=== PATIENT | male | born 1980 | race Caucasian/White ===

== ENCOUNTER → 2020-06-13 09:40 | Outpatient (BNVA) | payer OTHER, SELFPAY | PROVIDERS: Family Provider Family Medicine; PCP Family Medicine; Visit Provider Nurse Practitioner Family | DX: Z11.59 Encounter for screening for other viral diseases (principal) | CPT/HCPCS: 87635 ==

== ENCOUNTER 2021-08-24 08:15 | Emergency (ER) | payer SELFPAY ==
[2021-08-24 08:39] VITALS: BP 115/83; PULSE 86; RESP 19; TEMP 36.7; O2SAT 96; BMI 27.7
--- NOTE | 2021-08-24 08:49 | XR_ITS ---
WS: [id number] XR chest 1V portable [id number] REASON FOR EXAM: hemachezia FINDINGS: The chest is unchanged compared to previous examination of 02/18/2019. Mild tortuosity of the thoracic aorta. Normal heart size. Calcified granulomatous changes in both hemithoraces. No active pulmonary parenchymal or pleural disease. 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 XR/XR chest 1V portable [id number] IMPRESSION: No acute chest abnormality.
--- NOTE | 2021-08-24 08:49 | CT_ITS ---
WS: [id number] CT abdomen pelvis w con* [id number] REASON FOR EXAM: abdominal pain IV CONTRAST ADMINISTERED: 95 mL of Omnipaque 300 TOTAL EXAM DLP: 3282.[address] scans at [facility] use at least one of these dose optimization techniques: automat ed exposure control; mA and/or kV adjustment per patient size (includes targeted exams where dose is matched to clinical indication); or iterative reconstruction. FINDINGS: ABDOMEN: The liver, spleen, pancreas, and gallbladder are unremarkable. The adrenal glands are normal. [place] border effect in the renal medulla compatible with mild benign tubular ectasia. Otherwise the kidneys are unremarkable. No mass, adenopathy, or fluid collection. No free fluid. Normal appendix. There is a focal outpouching of the terminal ileum just proximal to its entry into the cecum that is thick-walled and contains at least 2 calculi. Measures approximately 2.5 x 2.5 cm. PELVIS: No mass, adenopathy, focal fluid collection, or free fluid. Diverticuli of the sigmoid colon without definite diverticulitis. The rectum and rectosigmoid junction demonstrate mural thickening with mildly increased enhancement o f the mucosa. CT/CT abdomen pelvis w con* [id number] IMPRESSION: Meckel's diverticulum containing calculi. This could be the source of GI bleedi ng. Inflammatory appearing changes in the rectum which could potentially also be a source of bleeding.
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
[2021-08-24 09:07] LABS: Add Urine Microscopic? NO; Charge for UA Resulting for Rev
[2021-08-24 09:08] LABS: Basophils # 0.1 10^3/uL (0.0-0.1); Basophils % 1.5 %; Eosinophils # 0.3 10^3/uL (0.0-0.8); Hematocrit 43.8 % (42.0-52.0); Hemoglobin 14.7 g/dL (11.7-16.6); Lymphocytes # 1.6 10^3/uL (0.8-4.8); Lymphocytes % 24.6 %; Mean Corpuscular HGB Conc 33.6 g/dL (30.0-36.0); Mean Corpuscular Hemoglobin 32.3 pg (28.0-34.0); Mean Corpuscular Volume 96.3 fl (80-94); Mean Platelet Volume 10.3 fL (7.4-10.4); Monocytes # 0.8 10^3/uL (0.2-0.9); Monocytes % 11.8 %; Neutrophils # 3.72 10^3/uL (1.8-7.7); Neutrophils % 56.8 %; Nucleated Red Blood Cells % 0 %; Platelet Count 193 10^3/cmm (130-400); Red Blood Count 4.55 10^6/uL (4.1-5.3); Red Cell Distribution Width 13.9 % (12.1-15.1); White Blood Count 6.6 10^3/uL (4.0-10.0)
[2021-08-24] MEDS: sodium chloride 0.9% 1,000 ML 999 ML IV (09:14)
[2021-08-24 09:19] LABS: Bilirubin Urine Neg (Negative); Blood Urine Neg (Negative); Glucose Urine UA Norm (Normal); Ketones Urine Negative (Negative); Leukocyte Esterase Urine Negative (Negative); Nitrate Urine Negative (Negative); Protein Urine Neg (Negative); Urine Appearance Clear (CLEAR); Urine Color Straw (Yellow); Urobilinogen Urine Norm (Negative); pH Urine 7 (5-7)
[2021-08-24 09:25] LABS: INR 0.88 (0.8-1.2)
[2021-08-24 09:26] LABS: Partial Thromboplastin Time 28.7 SECONDS (23.9-36.7)
[2021-08-24 09:33] LABS: Alanine Aminotransferase 16 U/L (0-41); Albumin Level 4.2 g/dL (3.5-5.2); Alkaline Phosphatase 40 IU/L (40-130); Anion Gap 15.9 (5-19); Aspartate Amino Transferase 29 U/L (0-40); Blood Urea Nitrogen 9 mg/dL (6-20); Calcium 8.5 mg/dL (8.5-10.5); Carbon Dioxide 26 mmol/L (22-29); Chloride 103 mmol/L (98-107); Globulin 2.9 g/dL (1.3-4.6); Glomerular Filtration Rate 125.5 mL/min (90-130); Glucose 86 mg/dL (65-115); Osmolality Calculated 290 mOsm/kg (285-295); Potassium 3.9 mmol/L (3.5-5.1); Sodium 141 mmol/L (136-145); Total Bilirubin 0.2 mg/dL (0.15-1.2); Total Protein 7.1 g/dL (6.6-8.7)
[2021-08-24] MEDS: CELEcoxib 100 mg Capsule 400 MG PO (10:22)
--- NOTE | 2021-08-28 15:16 | DCPLANNER ---
mobility manager had message to schedule a follow up appointment for patient with general surgery. mobility manager emailed patients information to Samanta Ramires and Angelica at [facility] General Surgery. Patients information will be printed and reviewed. Clinic will call patient with appointment information.
--- NOTE | 2021-09-21 10:37 | DCPLANNER ---
Patient had a follow up appointment scheduled for 09.04.21 with general surgery - patient did attend appointment.
== END 2021-08-24 10:29 | disposition home or self-care (01) ==
PROVIDERS: Emergency Provider Nurse Practitioner Family; PCP Family Medicine
DX: Q43.0 Meckel's diverticulum (displaced) (hypertrophic) (principal)
CPT/HCPCS: 71045; 74177; 80053; 81003; 85025; 85610; 85730; 96360; 99283; J7030; Q9967

== ENCOUNTER → 2021-09-18 15:33 | Outpatient (BNVA) | payer OTHER, SELFPAY | PROVIDERS: PCP Family Medicine; Visit Provider Surgery | DX: Z20.822 Contact with and (suspected) exposure to COVID-19 (principal); Z11.52 Encounter for screening for COVID-19 | CPT/HCPCS: 87635 ==

== ENCOUNTER 2021-09-22 07:14 | Day surgery (SDC) | payer SELFPAY ==
[2021-09-18 14:36] VITALS: BMI 30.4
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
[2021-09-22 07:47] VITALS: BP 133/90; PULSE 63; RESP 18; TEMP 36.6; O2SAT 96
[2021-09-22] MEDS: sodium chloride 0.9% 1,000 ML 30 ML IV (07:50)
--- NOTE | 2021-09-22 08:44 | W.PM.OPSUD ---
Surgery/Procedure H&P Update DATE OF PROCEDURE: September 22, 2021 DATE H&P PERFORMED: 09/04/21 H&P UPDATE INFORMATION: I have reviewed H&P completed within last 30 days, I have examined patient prior to procedure and No changes to prior documentation PREOP DIAGNOSIS: Bleeding per rectum PRIMARY INDICATION FOR PROCEDURE: The same PLANNED PROCEDURE: Operation Date: 09/22/21 08:45 Proposed Procedures p EGD/Colon 35931 K92.1(Not Applicable) - Alejandro Salas MD s Colonoscopy 58166 K92.1(Not Applicable) - Alejandro Salas MD
[2021-09-22 09:59] VITALS: BP 124/80; PULSE 65; RESP 18; TEMP 36.1; O2SAT 100
--- NOTE | 2021-09-22 10:03 | ANE.PACU2 ---
Inpatient post-anesthesia follow up: Airway intact: Yes Vital signs: Temperature 97.9 F Pulse Rate 63 Respiratory Rate 18 Blood Pressure 133/90 Pulse Oximetry 96 Oxygen Delivery Me thod Room Air Oxygen Flow Rate Fraction of Inspir ed Oxygen Hydration adequate: Yes Nausea and vomiting: No Pain level: 1 Mental status: Baseline
[2021-09-22 10:17] VITALS: BP 117/87; PULSE 60; RESP 18; O2SAT 99
[2021-09-25 15:09] LABS: H. Pylori / CLO Test Negative
== END 2021-09-22 10:28 | disposition home or self-care (01) ==
PROVIDERS: PCP Family Medicine; Visit Provider Surgery
PROC: 0DJ08ZZ Inspection of Upper Intestinal Tract, Via Natural or Artificial Opening Endoscopic (ICD-10-PCS; CPT 43235; principal; 2021-09-22 08:45)
PROC: 0DJD8ZZ Inspection of Lower Intestinal Tract, Via Natural or Artificial Opening Endoscopic (ICD-10-PCS; CPT 45378; 2021-09-22 08:45)
DX: K92.1 Melena (principal); K29.70 Gastritis, unspecified, without bleeding; K29.80 Duodenitis without bleeding; K21.00 Gastro-esophageal reflux disease with esophagitis, without bleeding
CPT/HCPCS: 43239; 45378; 87077; 96360; 96361; J2704; J7030

== ENCOUNTER → 2021-10-13 14:23 | Outpatient (BNVA) | payer OTHER, SELFPAY | PROVIDERS: PCP Family Medicine; Visit Provider Surgery | DX: Z20.822 Contact with and (suspected) exposure to COVID-19 (principal); Z11.52 Encounter for screening for COVID-19 | CPT/HCPCS: 87635 ==

== ENCOUNTER 2021-10-17 05:57 | Day surgery (SDC) | payer SELFPAY ==
[2021-10-16 15:55] VITALS: BMI 30.3
[2021-10-17] VITALS (18 sets, daily range): BP systolic 129–161; BP diastolic 65–106; PULSE 54–82; RESP 12–19; TEMP 36.9; O2SAT 92–97
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
[2021-10-17] MEDS: acetaminophen 1,000 MG/100 ML PIGGYBACK 400 MG IV (06:47)
[2021-10-17] MEDS: heparin 5,000 unit/mL INJ 1 mL 3000 UNIT SUBCUT (06:47)
[2021-10-17] MEDS: sodium chloride 0.9% 1,000 ML 30 ML IV (06:53)
--- NOTE | 2021-10-17 06:58 | ANES.PREANE2 ---
Pre-Anesthetic Assessment Pre-Anesthetic Assessment: Height/Weight: Height 1.85 m Weight 104.326 kg Temp Pulse Resp BP Pulse Ox 98.4 F 63 18 134/94 97 10/17/21 06:23 10/17/21 06:23 10/17/21 06:23 10/17/21 06:23 10/17/21 06:23 Preop Diagnosis: Ileal diverticulum Proposed Procedure: Operation Date: 10/17/21 07:30 Proposed Procedures p Laparoscopic Right Hemicolectomy 66547 K62.5(Right) - Alejandro Salas MD Was Beta Corinne taken within 24 hours: N/A Was Clonidine taken within 24 hours: N/A Last intake: Intake Last Liquid Date 10/17/21 Last Liquid Time 00:00 Last Solid Date 10/16/21 Last Solid Time 08:00 Social: Social History: Alcohol and No tobacco Exam: Pre-Anes Outpt Exam: alert, oriented x 3, clear to auscultation bilaterally and regular rate & rhythm Airway: Submandibular: WNL Cervical ROM: WNL MP: 1 Dentition: Chipped History/ROS: No significant history except as noted Pulmonary: Pulmonary: None reported CV/HEM: CV/HEM: None reported : : None reported Hepatic: Hepatic: None reported GI: GI: GERD Comments: Bleeding per rectum, Meckels diverticulum Metabolic: Metabolic: None reported Musc/skel: Musc/skel: None reported Neuropsych: Neuropsych: None reported Anesthetic Plan: ASA status: 2 Anesthesia: Anesthesia Evaluation and General Risk of > 500 ml blood loss (7ml/kg in children): No Meds/Allergies Current Medications: Current Medications Generic Name Dose Route Start Last Admin Trade Name Freq PRN Reason Stop Dose Admin Sodium Chloride 1,000 mls @ 30 ml s/hr 10/17/21 06:30 10/17/21 06:53 Sodium Chloride 0.9% IV 10/18/21 06:29 30 mls/hr .Q24H BASIM Administration PFSH Anesthesia PFSH: Medical History Gastritis and duodenitis Family History Denies family history of Anesthesia complication Social History Alcohol intake: current Alcohol intake frequency: 3 or more drinks per day Alcohol type: beer Data Anesthesia Cardiac Studies: No Data to Display
[2021-10-17] MEDS: piperacillin-tazobactam 3.375 GM in sodium chloride 0.9% (plus) 50 ML IV (07:54)
--- NOTE | 2021-10-17 09:39 | PM.OP ---
Operative Report Date of procedure: October 17, 2021 Pre-op Diagnosis: Ileal diverticulum Post-op diagnosis: same Post-op Diagnosis: Incidental finding of jejunal intussusception without complication or secondary underlying cause that was milked out without complication Post-op Findings: Normal intra-abdominal findings except for omental adhesions towards the falciform ligament Procedure Done: 1-Diagnostic laparoscopy 2-Laparoscopic incidental appendectomy Implants: Pieces of Surgicel Specimens removed/disposition: Appendix Surgeon: Alejandro Salas Director Pharmacy Services: Surgical Cinthya Arora Circulating nurse Ninfa Anesthesia: 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 Patient was appropriately secured to the table. Timeout was done verifying the patient's name/date of /planned procedure and destination after the procedure, all were in agreement., preoperative antibiotics administered per protocol. prep and drape of the abdomen was done under the usual sterile technique. Started by longitudinal skin incision supraumbilical using a Campbell trocar technique safe entry to the abdominal cavity was achieved verified by using 10 mm zero degree laparoscopy, switched to a 30? scope under direct visualization a suprapubic 5 mm trocar was inserted followed by another 5 mm trocar inserted in the left upper quadrant. Extensive adhesions noted towards the cephalad part of the abdomen that was taken down under direct visualization using energy device Enseal. At that point attention was deviated towards the terminal ileum were no diverticula were appreciated and the whole bowel were checked from the ileocecal junction to the ligament of Treitz. Only incidental small intussusception was found towards the proximal part of the jejunum that was milked out without difficulty and there were no other underlying masses or lymph nodes no evidence of bowel ischemia. At that point I did discuss the case over the phone with Dr. Davey radiologist as there were findings of ileal diverticulum in the past on the CT scan. As I could not see any abnormalities detected of the bowel. I decided at that point to perform incidental appendectomy, a window was created and a blue load GI stapler was fired towards the healthy base of the appendix and Endoloop PDS was placed under direct visualization to control the mesoappendix. Appendectomy was achieved and was retrieved in Endo Catch bag for permanent pathology. Final look laparoscopy was done showing no other abnormalities or injuries, was some oozing at all of the small bowel serosa and is piece of Surgicel was applied also another piece of Surgicel was applied towards the omental adhesiolysis all trocars were taken out under direct visualization after the supraumblical trocar site was closed by #1 PDS sutures under direct vision using fascial closure device ,followed by skin closure using 4-0 Monocryl of all trocar site incisions. Surgical glue was applied Bilateral TAP (transversus abdominous plain peripheral nerve block) block using Exparel 20 mL Exparel,40 ml Normal saline,20 ml bupivacaine 0.25% 30 mL on each side injected, 20 mL injected the port sites. Count was completed at the end of the procedure for [place] , sponges and instruments, Zurita catheter was taken out at the end of the procedure Patient tolerated the procedure well and was transferred to the recovery area after extubation. I was present for the whole entire procedure
[2021-10-17] MEDS: fentaNYL 50 mcg/mL INJ 2mL IVP (09:56)
[2021-10-17] MEDS: HYDROmorphone 1 mg/mL INJ 1 mL 0.5 MG IVP (10:20)
--- NOTE | 2021-10-17 10:30 | SUR.PHASEI ---
PT AWAKE ALERT TALKATIVE UNABLE TO USE URINAL AT THIS TIME PT TAKING ICE CHIPS PT ON 3LNC SATS 96% AND NON LABORED MONITOR SR, ABD SOFT FLAT WITH 3 SITES D/I
--- NOTE | 2021-10-17 10:37 | SUR.PHASEI ---
PT NOW OUT OF PHASE 1 PT IN HOLDING OPS ROOM 12 PT AWAKE ALERT VSS CALL LIGHT WITHIN REACH.
--- NOTE | 2021-10-17 11:14 | SUR.PHASEI ---
PT SLEEPS QUIETLY IN ROOM SIPS OF SPRITE, BED LOCKED AND CALL LIGHT WITHIN REACH, PT CARE ASSUMED BY YAQUELIN PHILLIPS. PT HAS HIS BELONGING AND CELL PHONE.
--- NOTE | 2021-10-17 11:23 | SUR.PHASEI ---
patient has sprite, water, ice chips at bedside. patient states he is comfortable.
--- NOTE | 2021-10-17 14:11 | PM.SDS ---
Short Stay Summary Providers Date of Admit/Discharge: 10/19/21 Attending Provider: Alejandro Marshall MD Primary Care Provider: Beata Stallings DO Chief Complaint: Bleeding per rectum HPI History of Present Illness Lucio James is a 41 year old male with history of bleeding per rectum and was found to have ileal diverticulum, patient was worked up and the decision was done to perform a laparoscopic right hemicolectomy versus laparoscopic ileocecectomy. Patient agreed to proceed accordingly. Review of Systems General: Reports: 10 or more systems reviewed and unremarkable except in HPI and below Home Meds/Allergies Home Medications and Allergies Home Medications Medication Instructions Recorded Confirmed Type multivitamin 1 tab PO DAILY 09/18/21 10/17/21 History Allergies Allergy/AdvReac Type Severity Reaction Status Date / Time No Known Allergies Allergy Verified 10/16/21 15:54 PFSH Acute PFSH: Medical History Gastritis and duodenitis Family History Denies family history of Anesthesia complication Social History Alcohol intake: current Alcohol intake frequency: 3 or more drinks per day Alcohol type: beer Vitals/I&O/Wt Last Vital Signs Temp 98.4 F 10/17/21 10:35 Pulse 74 10/17/21 11:20 Resp 19 H 10/17/21 11:20 BP 135/91 10/17/21 11:20 Pulse Ox 93 10/17/21 11:20 10/16/21 10/17/21 10/17/21 22:59 06:59 14:59 Intake Total 100 / 100 150 / 150 Output Total 305 / 305 Balance 100 / 100 -155 / -155 Weight last 48 hrs Weight 230 lb Physical Exam Narrative: EXAM NARRATIVE: Patient is conscious alert oriented X3 BMI 30 Head and neck examination PERRLA no masses no cervical lymphadenopathy no jaundice Abdomen nontender except mildly at the incision sites nondistended soft no organomegaly guarding or rigidity/no signs of peritonitis Urinary Catheter Management^: Zurita: Cath Placed During This Visit: yes, but has since been removed by the nurse Urinary Catheter Date of Insertion: 10/17/21 Urinary Catheter Time of Insertion: 08:10 Date Urinary Catheter Removed: 10/17/21 Time Urinary Catheter Discontinued: 09:48 Hospital Course Hospital Course Patient did well postoperatively and continued to have stable vital signs and good urine output. Tolerated p.o. intake and continued to pass gas. Discharge Summary Patient met the appropriate criteria for safe discharge home with the plan to follow-up with me in the office in 1 week SSS Data Data Completed and Pending: Pending at discharge Category Date Time Status Pathology: Surgic al [PTH] Routine Pth 10/17/21 09:41 Ordered Diagnoses at Discharge Discharge Diagnosis (1) Bleeding per rectum: Status: Resolved Discharge Plan Discharge Patient Disposition: Home Condition: Stable Prescriptions: New hydrocodone-acetaminophen 5-325 mg tablet 1 tab PO Q6H PRN (Reason: pain) Qty: 28 RF: 0 Continued multivitamin Tablet 1 tab PO DAILY RF: 0 pantoprazole [Protonix] 40 mg tablet,delayed release (DR/EC) 40 mg PO DAILY 30 Days Qty: 30 RF: 3 Discontinued erythromycin 500 mg tablet 500 mg PO ONCE Qty: 3 RF: 0 neomycin 500 mg tablet 1 g PO ONCE Qty: 6 RF: 0 Discharge Orders: Discharge Order (Routine); Ordered 10/17/21 Ordered By: Alejandro Marshall Referrals: Alejandro Marshall MD [Physician] - (FOLLOW UP WITH DOCTOR MARSHALL ON OCTOBER 26 AT 8:35am.) Discharge Diet: Advance as tolerated Discharge Activity: Limit activity as instructed Activity Restrictions/Additional Instructions: 1. Patient can shower after 48 hours from surgery 2. Remove Dermabond 7 to 10 days after surgery, if there is a secondary dressing can take down after 48 hours. 3. Up and walking as tolerated 4. Do not lift more than 5 pounds first 2 weeks after surgery and not more than 25 pounds 6 to 8 weeks after surgery. 5. Do not operate heavy machinery or drive while using pain medications. 6.Contact the office or return to the ER for worsening nausea vomiting fevers or chills, or noticing any redness around incision sites or discharge. 7. Avoid constipation Attestations Medical Necessity Statement*: Observation for perioperative care Time Spent in Patient Care*: less than 30 min Specific Discharge Activities: Specific discharge activities: educating patient Status at Discharge: Cognitive status at discharge: cognitively intact, Behavioral status at discharge: cooperative, Overall status at discharge: patient is progressing back to baseline Quality Metrics Clinical Quality Measures: During this hospital stay, did patient experience: None Coding Level of Care Code Acute Certified Family Mediator for Chg Fwd Diagnoses Bleeding per rectum K62.5
--- NOTE | 2021-10-17 14:18 | ANE.PACU2 ---
Inpatient post-anesthesia follow up: Vital signs: Temperature 98.4 F Pulse Rate 74 Respiratory Rate 19 Blood Pressure 135/91 Pulse Oximetry 93 Oxygen Delivery Me thod Nasal Cannula Oxygen Flow Rate 3 Fraction of Inspir ed Oxygen Hydration adequate: Yes Nausea and vomiting: No Pain level: 3 Mental status: Baseline
[2021-10-17] MEDS: HYDROcodone-acetaminophen 5-325 mg Tablet 1 TAB PO (14:38)
--- NOTE | 2021-10-17 14:52 | SUR.PHASEII ---
14:15 PATIENT RE-EVALUATED BY DOCTOR ROLANDO. PO PAIN MED GIVEN.
== END 2021-10-17 14:45 | disposition home or self-care (01) ==
PROVIDERS: PCP Family Medicine; Visit Provider Surgery
PROC: 0DTJ4ZZ Resection of Appendix, Percutaneous Endoscopic Approach (ICD-10-PCS; CPT 44970; principal; 2021-10-17 07:30)
DX: K62.5 Hemorrhage of anus and rectum (principal); K57.10 Diverticulosis of small intestine without perforation or abscess without bleeding; K20.90 Esophagitis, unspecified without bleeding; K56.1 Intussusception; R59.9 Enlarged lymph nodes, unspecified; K66.0 Peritoneal adhesions (postprocedural) (postinfection)
CPT/HCPCS: 44970; 51702; 88304; 96365; 96372; C9290; J1100; J1170; J1644; J2405; J2543; J2704; J2710; J3010; J3490; J7030

== ENCOUNTER 2021-10-24 13:58 | Observation (INO) | payer SELFPAY ==
[2021-10-24] VITALS (7 sets, daily range): BP systolic 125–139; BP diastolic 89–97; PULSE 69–84; RESP 17–19; TEMP 36.4; O2SAT 96–98; BMI 30.3; BMI 26.6
--- NOTE | 2021-10-24 15:20 | CTR_ITS ---
PROCEDURE INFORMATION: Exam: CT Abdomen And Pelvis With Contrast Exam date and time: 10/24/2021 3:20 PM Age: 41 years old Clinical indication: Abdominal pain; Prior surgery; Surgery date: <1 month; Additional info: Post surgical pain, diagnostic laparoscopy, incidental jejunal intussusception, TECHNIQUE: Imaging protocol: Computed tomography of the abdomen and pelvis with contrast. Axial, coronal and sagittal reformatted images were created and reviewed. Radiation optimization: All CT scans at this facility use at least one of these dose optimization techniques: automated exposure control; mA and/or kV adjustment per patient size (includes targeted exams where dose is matched to clinical indication); or iterative reconstruction. Contrast material: OMNI 300; Contrast volume: 95 ml; Contrast route: INTRAVENOUS (IV); COMPARISON: CT abdomen pelvis w con* [id number] 08/24/2021 9:04 AM RADIATION DOSE METRICS: Total DLP (mGy-cm): 1787.21 FINDINGS: Lungs: Minimal bibasilar atelectatic change. Liver: Unremarkable. Gallbladder and bile ducts: No radiodense gallstones. No biliary ductal dilatation. Pancreas: Unremarkable. Spleen: Unremarkable. Adrenal glands: Normal. No mass. Kidneys and ureters: No mass. No radiodense calculi. No hydronephrosis. Stomach and bowel: Postoperative changes in the right lower quadrant. No definite bowel wall thickening. No obstruction. No pneumatosis. Appendix: Normal. Intraperitoneal space: Small hemoperitoneum, predominantly in the right lower quadrant and pelvis. No convincing active extravasation of contrast. No definite organized collection. No free air. Vasculature: Unremarkable. No aneurysm. Lymph nodes: No pathologically enlarged lymph nodes. Urinary bladder: Unremarkable as visualized. Reproductive: Unremarkable. Bones/joints: No acute osseous abnormality. Osteopenia. Mild degenerative changes. Evidence of prior left sacroiliac joint fusion. Fixation hardware in the pubic symphysis and left proximal femur. Soft tissues: Unremarkable. CT/CT abdomen pelvis w con* [id number] IMPRESSION: 1. Small hemoperitoneum, predominantly in the right lower quadrant and pelvis, possibly related to continued bleeding at the operative site. Other sources of bleeding cannot be excluded. No definite active extravasation of contrast. Continued clinical and imaging surveillance is recommended. 2. Additional findings, as above.
[2021-10-24 18:04] LABS: Basophils # 0.1 10^3/uL (0.0-0.1); Basophils % 1.1 %; Eosinophils # 0.3 10^3/uL (0.0-0.8); Eosinophils % 2.6 %; Hematocrit 39.1 % (42.0-52.0); Hemoglobin 13.3 g/dL (11.7-16.6); Lymphocytes # 1.8 10^3/uL (0.8-4.8); Lymphocytes % 17.6 %; Mean Corpuscular Hemoglobin 33.4 pg (28.0-34.0); Mean Corpuscular Volume 98.2 fl (80-94); Mean Platelet Volume 9.5 fL (7.4-10.4); Monocytes # 1.1 10^3/uL (0.2-0.9); Monocytes % 10.7 %; Neutrophils # 6.79 10^3/uL (1.8-7.7); Neutrophils % 66.5 %; Nucleated Red Blood Cells % 0 %; Platelet Count 309 10^3/cmm (130-400); Red Blood Count 3.98 10^6/uL (4.1-5.3); Red Cell Distribution Width 13.5 % (12.1-15.1); White Blood Count 10.2 10^3/uL (4.0-10.0)
[2021-10-24 18:21] LABS: Alanine Aminotransferase 12 U/L (0-41); Albumin Level 4.4 g/dL (3.5-5.2); Alkaline Phosphatase 46 IU/L (40-130); Anion Gap 17.5 (5-19); Aspartate Amino Transferase 24 U/L (0-40); Blood Urea Nitrogen 12 mg/dL (6-20); Calcium 9.1 mg/dL (8.5-10.5); Carbon Dioxide 23 mmol/L (22-29); Chloride 103 mmol/L (98-107); Globulin 3.1 g/dL (1.3-4.6); Glomerular Filtration Rate 125.5 mL/min (90-130); Glucose 95 mg/dL (65-115); Lipase 72 U/L (13-60); Osmolality Calculated 288 mOsm/kg (285-295); Potassium 4.5 mmol/L (3.5-5.1); Sodium 139 mmol/L (136-145); Total Bilirubin 0.8 mg/dL (0.15-1.2); Total Protein 7.5 g/dL (6.6-8.7)
[2021-10-24] MEDS: iohexol 300 mg/mL 100 mL Btl IV (19:59)
[2021-10-24] MEDS: morphine 4 mg/mL SDV 1 mL IVP ×2 (20:12→23:19)
[2021-10-24 20:15] LABS: Add Urine Microscopic? NO; Charge for UA Resulting for Rev
[2021-10-24] MEDS: ondansetron 2 mg/ML SDV 2 mL 4 MG IVP (20:16)
--- NOTE | 2021-10-24 20:16 | W.ED.ABDPA2 ---
HPI - Abdominal Pain General: Chief Complaint: Abdominal Pain Stated Complaint: ABD PAIN/POST SURGERY RELATED Time Seen by Provider: 10/24/21 19:48 Source: patient Mode of arrival: ambulatory Limitations: no limitations History of Present Illness: HPI narrative: 41-year-old male who had an appendectomy 1 week ago states that he started having pain again last night that is diffuse in nature states this is gotten worse today states is worse with movement or palpation improved with rest states pain is currently an 8 out of 10 denies any fever denies any vomiting or diarrhea. He has not followed up with a surgeon since his appendectomy but states he did not have any issues till yesterday. Denies any constipation difficulty urinating Associated Symptoms: Denies chills, dysuria and fever(s) Review of Systems Const: Denies: fever(s), chills, body aches or change in appetite Eyes: Denies: blurry vision or eye discomfort ENMT: Denies: throat pain or dental pain Card: Denies: chest pain Resp: Denies: dyspnea GI: Reports: abdominal pain : Denies: dysuria Musc: Denies: neck pain or back pain Skin/Breast: Denies: rash Neuro: Denies: headache(s) Psych: Denies: depression Reymundo/Lymph: Denies: easy bruising All/Imm: Denies: urticaria PFSH ED PFSH: Medical History Gastritis and duodenitis Family History Denies family history of Anesthesia complication Social History Alcohol intake: current Alcohol intake frequency: 3 or more drinks per day Alcohol type: beer Physical Exam Const: COMMON NORMALS: no acute distress, patient oriented x3 and healthy appearing HENMT: COMMON NORMALS: normocephalic and atraumatic HEAD & SCALP: normocephalic and atraumatic Eye: COMMON NORMALS: Equal, round and reactive pupils present and EOMs intact bilaterally PUPIL: Yes Equal, round and reactive pupils present Neck/C-Spine: COMMON NORMALS: full ROM and supple Chest: COMMONS NORMALS: normal inspection of the chest and normal palpation of entire chest wall Resp: COMMON NORMALS: normal respiratory effort, No retractions, No use of accessory muscles and clear to auscultation bilaterally AUSCULTATION: clear to auscultation bilaterally Cardio: COMMON NORMALS: regular rate, regular rhythm and No murmurs present (Cardio) RATE: regular rate RHYTHM: regular rhythm GI: COMMON NORMALS: Normal to inspection, nondistended, normoactive bowel sounds present, Soft to palpation and no masses PALPATION: Yes Soft to palpation OTHER: diffuse tenderness Extremity: COMMON NORMALS: normal to inspection and full ROM Neuro: COMMON NORMALS: patient oriented x3, moves all extremities and no focal motor deficits Psych: COMMON NORMALS: mental status grossly normal, Normal thought process present and cooperative THOUGHT PROCESS: Normal thought process present Skin: COMMON NORMALS: no rashes or lesions noted and no wounds GENERAL SKIN EXAM: no rashes or lesions noted Course Vital Signs: Vital signs: Vital Signs Temperature 97.6 F 10/24/21 14:31 Pulse Rate 69 10/24/21 20:38 Respiratory Rate 17 10/24/21 20:38 Blood Pressure 137/92 10/24/21 20:38 Pulse Oximetry 97 10/24/21 20:38 MDM - Abdominal Pain MDM Narrative: Medical decision making narrative: Patient presents with diffuse abdominal pain CT did show a small hemoperitoneum but no active bleeding patient's hemoglobin here is stable vitals are stable as well. I did speak to his surgeon Dr. Swift will admit for observation to trend his hemoglobin and for reevaluation and reexamination in the morning. Lab Data: Labs: Lab Results 10/24/21 10/24/21 10/24/21 17:57 17:57 20:07 WBC 10.2 10^3/uL H 10 ^3/uL (4.0-10.0) RBC 3.98 10^6/uL L 10 ^6/uL (4.1-5.3) Hgb 13.3 g/dL g/dL (11.7-16.6) Hct 39.1 % L % (42.0-52.0) MCV 98.2 fl H fl (80-94) MCH 33.4 pg pg (28.0-34.0) MCHC 34.0 g/dL g/dL (30.0-36.0) RDW 13.5 % % (12.1-15.1) Plt Count 309 10^3/cmm 10^3 /cmm (130-400) MPV 9.5 fL fL (7.4-10.4) Neut % (Auto) 66.5 % % Lymph % (Auto) 17.6 % % [place]atte % (Auto) 10.7 % % Eos % (Auto) 2.6 % % Baso % (Auto) 1.1 % % Neut # (Auto) 6.79 10^3/uL 10^3 /uL (1.8-7.7) Lymph # (Auto) 1.8 10^3/uL 10^3/ uL (0.8-4.8) Platte # (Auto) 1.1 10^3/uL H 10^ 3/uL (0.2-0.9) Eos # (Auto) 0.3 10^3/uL 10^3/ uL (0.0-0.8) Baso # (Auto) 0.1 10^3/uL 10^3/ uL (0.0-0.1) Nucleated RBC % (a uto) 0 % % Nucleated RBCs # 0.0 /100WBC /100W BC Sodium 139 mmol/L mmol/L (136-145) Potassium 4.5 mmol/L mmol/L (3.5-5.1) Chloride 103 mmol/L mmol/L (98-107) Carbon Dioxide 23 mmol/L mmol/L (22-29) Anion Gap 17.5 (5-19) BUN 12 mg/dL mg/dL (6-20) Creatinine 0.7 mg/dL mg/dL (0.7-1.2) GFR Calculation 125.5 mL/min mL/m in (90-130) Glucose 95 mg/dL mg/dL (65-115) Calculated Osmolal ity 288 mOsm/kg mOsm/ kg (285-295) Calcium 9.1 mg/dL mg/dL (8.5-10.5) Total Bilirubin 0.8 mg/dL mg/dL (0.15-1.2) AST 24 U/L U/L (0-40) ALT 12 U/L U/L (0-41) Alkaline Phosphata se 46 IU/L IU/L (40-130) Total Protein 7.5 g/dL g/dL (6.6-8.7) Albumin 4.4 g/dL g/dL (3.5-5.2) Globulin 3.1 g/dL g/dL (1.3-4.6) Lipase 72 U/L H U/L (13-60) Urine Color Dark yellow (Yellow) Urine Appearance Clear (CLEAR) Urine pH 5 (5-7) Ur Specific Gravit y 1.025 (1.005-1.030) Urine Protein Neg (Negative) Urine Glucose (UA) Norm (Normal) Urine Ketones Negative (Negative) Urine Blood Neg (Negative) Urine Nitrate Negative (Negative) Urine Bilirubin Neg (Negative) Urine Urobilinogen Neg mg/dL mg/dL (Negative) Ur Leukocyte Mildred ase Negative (Negative) Imaging Data ^: CT Abd/Pel: Attestation: I personally reviewed and interpreted this imaging study as follows: Radiologist's impression: [facility] [address] [address] Scan Report Signed Patient: Lucio James Unit #: [id number] : 1980 Age/Sex: 41 / M ADM Date: 10/24/21 Loc: ER Room/Bed: Attending Dr: Ordering Provider/Ordering MD: Sary Miles Date of Service: 10/24/21 Procedure(s): CT abdomen pelvis w con* [id number] Accession Number(s): [id number] Report Number: [id number] PROCEDURE INFORMATION: Exam: CT Abdomen And Pelvis With Contrast Exam date and time: 10/24/2021 3:20 PM Age: 41 years old Clinical indication: Abdominal pain; Prior surgery; Surgery date: <1 month; Additional info: Post surgical pain, diagnostic laparoscopy, incidental jejunal intussusception, TECHNIQUE: Imaging protocol: Computed tomography of the abdomen and pelvis with contrast. Axial, coronal and sagittal reformatted images were created and reviewed. Radiation optimization: All CT scans at this facility use at least one of these dose optimization techniques: automated exposure control; mA and/or kV adjustment per patient size (includes targeted exams where dose is matched to clinical indication); or iterative reconstruction. Contrast material: OMNI 300; Contrast volume: 95 ml; Contrast route: INTRAVENOUS (IV); COMPARISON: CT abdomen pelvis w con* [id number] 08/24/2021 9:04 AM RADIATION DOSE METRICS: Total DLP (mGy-cm): 1787.21 FINDINGS: Lungs: Minimal bibasilar atelectatic change. Liver: Unremarkable. Gallbladder and bile ducts: No radiodense gallstones. No biliary ductal dilatation. Pancreas: Unremarkable. Spleen: Unremarkable. Adrenal glands: Normal. No mass. Kidneys and ureters: No mass. No radiodense calculi. No hydronephrosis. Stomach and bowel: Postoperative changes in the right lower quadrant. No definite bowel wall thickening. No obstruction. No pneumatosis. Appendix: Normal. Intraperitoneal space: Small hemoperitoneum, predominantly in the right lower quadrant and pelvis. No convincing active extravasation of contrast. No definite organized collection. No free air. Vasculature: Unremarkable. No aneurysm. Lymph nodes: No pathologically enlarged lymph nodes. Urinary bladder: Unremarkable as visualized. Reproductive: Unremarkable. Bones/joints: No acute osseous abnormality. Osteopenia. Mild degenerative changes. Evidence of prior left sacroiliac joint fusion. Fixation hardware in the pubic symphysis and left proximal femur. Soft tissues: Unremarkable. CT/CT abdomen pelvis w con* [id number] IMPRESSION: 1. Small hemoperitoneum, predominantly in the right lower quadrant and pelvis, possibly related to continued bleeding at the operative site. Other sources of bleeding cannot be excluded. No definite active extravasation of contrast. Continued clinical and imaging surveillance is recommended. 2. Additional findings, as above. Dictated By: Eber Greenwood MD Signed By: Eber Greenwood MD Signed Date/Time: 10/24/212107 Discharge Plan Discharge Patient Disposition: Placed in Observation Clinical Impression: Hemoperitoneum Abdominal pain Qualifiers: Abdominal location: generalized Qualified Code(s): R10.84 - Generalized abdominal pain Coding Level of Care Code ED Screener And Blender Operator for g Fwd Exam Comprehensive
[2021-10-24 20:27] LABS: Bilirubin Urine Neg (Negative); Blood Urine Neg (Negative); Glucose Urine UA Norm (Normal); Ketones Urine Negative (Negative); Leukocyte Esterase Urine Negative (Negative); Nitrate Urine Negative (Negative); Protein Urine Neg (Negative); Specific Gravity, Urine 1.025 (1.005-1.030); Urine Appearance Clear (CLEAR); Urine Color Dark Yellow (Yellow); Urobilinogen Urine Neg (Negative); pH Urine 5 (5-7)
[2021-10-24] MEDS: HYDROmorphone 1 mg/mL INJ 1 mL IVP (21:45)
[2021-10-24 22:01] LABS: Lactate (Lactic Acid level) 0.6 mmol/L (0.5-2.2)
[2021-10-24] MEDS: sodium chloride 0.9% 1,000 ML 100 ML IV (23:18)
--- NOTE | 2021-10-24 23:30 | PC.NURSE ---
ADMIT NOTE Pt received to floor from ER at 2308 via wheelchair. Is alert and oriented. c/o lower abdominal pain isadora to the RLQ. Says pain increases with movement. Had lap appey a week ago and was doing well until pain started last evening and did not let up. Denies any activity precipitating the pain. I've been trying to take it easy Also denies any nausea. IV fluids of NS started at 100ml/hr rate. Was given Morphine on arrival to floor. Says moving with transfer started pain up again. Aware of NPO status and says will probably go to the OR in the morning.
[2021-10-25] VITALS (16 sets, daily range): BP systolic 102–122; BP diastolic 62–85; PULSE 56–68; RESP 16–18; TEMP 36.6–37.1; O2SAT 92–97
[2021-10-25] MEDS: morphine 4 mg/mL SDV 1 mL IVP ×10 (01:49→23:49)
--- NOTE | 2021-10-25 05:42 | PC.NURSE ---
SHIFT SUMMARY Has not slept since admission but says is not unusual for him. Continues to have c/o abdominal pain isadora in RLQ. Is quite tender and says moving around increases the pain. Abd without distention. Call was made to Dr Salas regarding pain and pain med. Morphine freq was increased to q2h prn and has taken it when time. IV fluids infusing at 100ml/hr rate. Dr Salas in this am to see and evaluate pt
--- NOTE | 2021-10-25 05:48 | PM.HP ---
Providers/Chief Complaint Admitting Physician: Alejandro Salas MD Primary Care Provider: Beata Stallings DO Chief Complaint: ABD PAIN/POST SURGERY RELATED History of Present Illness Lucio James is a 41 year old male well-known to me has recently undergone uneventful diagnostic laparoscopy and incidental appendectomy on October 17, 2021. Over the past couple of days patient started to encounter sharp right lower quadrant abdominal pain referred to the private area, patient denies any nausea vomiting fevers or chills or change in bowel habits. He continues to tolerate p.o. intake and passing gas and having bowel movements. Patient denies any NSAID intake or any trauma to the area or heavy lifting or strenuous exercises. Patient symptoms got worse he got very anxious and worried so he came to the emergency department and further work-up was done in the form of blood work that showed WBC count of 10.2, hemoglobin of 13.3 and hematocrit of 39.1, platelets of 309. Otherwise CMP unremarkable except for slight elevation of serum lipase up to 72. CT scan of the abdomen and pelvis: 1. Small hemoperitoneum, predominantly in the right lower quadrant and pelvis, possibly related to continued bleeding at the operative site. Other sources of bleeding cannot be excluded. No definite active extravasation of contrast. Continued clinical and imaging surveillance is recommended. 2. Additional findings, as above. I elected to admit the patient for observation status to monitor his vital signs which continue to be stable as well as to obtain repeat blood work. Review of Systems General: Reports: 10 or more systems reviewed and unremarkable except in HPI and below Medications/Allergies Home Medications Medication Instructions Recorded Confirmed Last Taken Type multivitamin 1 tab PO DAILY 09/18/21 10/25/21 1 Day Ago History ~10/16/21 pantoprazole [Protonix] 40 mg PO DAILY 30 Days #30 tab 09/22/21 10/25/21 1 Day Ago Rx ~10/16/21 Allergies Allergy/AdvReac Type Severity Reaction Status Date / Time No Known Allergies Allergy Verified 10/25/21 06:04 PFSH Acute PFSH: Medical History Gastritis and duodenitis Family History Denies family history of Anesthesia complication Social History Alcohol intake: current Alcohol intake frequency: 3 or more drinks per day Alcohol type: beer Vitals/I&O/Wt Last Vital Signs Temp 97.9 F 10/25/21 04:38 Pulse 66 10/25/21 04:38 Resp 18 10/25/21 04:38 BP 120/81 10/25/21 04:38 Pulse Ox 92 10/25/21 04:38 10/24/21 10/24/21 10/25/21 14:59 22:59 06:59 Intake Total 150 / 150 Output Total 400 / 400 Balance -250 / -250 Weight last 48 hrs Weight 202 lb 8 oz Weight 230 lb Physical Exam Const: COMMON NORMALS: no acute distress and patient oriented x3 GENERAL APPEARANCE: cooperative ORIENTATION/CONSCIOUSNESS: Yes awake, Yes oriented to person, Yes oriented to place and Yes oriented to time HENMT: COMMON NORMALS: normocephalic HEAD & SCALP: normocephalic Eye: COMMON NORMALS: Equal, round and reactive pupils present and no scleral icterus PUPIL: Yes Equal, round and reactive pupils present Lymph: LYMPHATIC: no lymphadenopathy noted Chest: COMMONS NORMALS: normal inspection of the chest Resp: COMMON NORMALS: normal respiratory effort and clear to auscultation bilaterally AUSCULTATION: clear to auscultation bilaterally Cardio: COMMON NORMALS: S1 normal heart sound present and S2 normal heart sound present; negative for No murmurs present (Cardio) HEART SOUNDS: S1 normal heart sound present and S2 normal heart sound present GI: COMMON NORMALS: Soft to palpation; negative for No hepatosplenomegaly present INSPECTION: Yes normal to inspection AUSCULTATION: Yes Other GI auscultation findings (Incisions are healing well) PALPATION: Yes Soft to palpation, No Firmness to palpation present (GI), Yes Tenderness to palpation present (GI) Details: RLQ (No evidence of bruises or ecchymosis), No Guarding due to palpation present (GI), No Rigid due to palpation and No No hepatosplenomegaly present PERCUSSION: Other GI image (male): 1. No scrotal swelling or edema or bruises Neuro: COMMON NORMALS: patient oriented x3 SENSORIUM/ORIENTATION: Yes oriented to person, Yes oriented to place and Yes oriented to time Psych: COMMON NORMALS: mental status grossly normal Skin: COMMON NORMALS: no rashes or lesions noted GENERAL SKIN EXAM: no rashes or lesions noted Data : 10/25/21 05:34 10/24/21 17:57 A&P Assessment and plan (1) Postoperative hematoma: After thorough history physical examination and reviewing the chart and images. I do not see active bleeding at the moment yet I will further review the images with our radiologist, meanwhile we will put the patient prophylactically on broad-spectrum antibiotics and ice packs to the area. Further review the CT scan images with he does not see any indication of active bleeding at the present time as he describes the pathology has been contained hematoma. No evidence of free air or signs of abscess formation. Repeat physical examination Repeat blood work in the a.m. including lipase Pain control We will keep n.p.o. for now Assurance and education also I did talk with patient's spouse over the phone on morning clinical encounter to assure her and explain for the plan of care All questions have been answered and all concerns have been addressed to patient's satisfaction. Status: Acute Attestations Medical Necessity Statement*: Observation status for monitoring of vital signs and H&H Time Spent in Patient Care: 16 - 35 minutes (>than 50% of time spent in counselling and/or direct pt care on unit). Coding Level of Care Code Acute Rfid Systems Architect for Cedric Fwd Exam Comprehensive Diagnoses Postoperative hematoma
[2021-10-25 06:09] LABS: Basophils # 0.1 10^3/uL (0.0-0.1); Basophils % 1.3 %; Eosinophils # 0.4 10^3/uL (0.0-0.8); Eosinophils % 4.7 %; Hematocrit 35.8 % (42.0-52.0); Hemoglobin 11.9 g/dL (11.7-16.6); Lymphocytes % 22.4 %; Mean Corpuscular HGB Conc 33.2 g/dL (30.0-36.0); Mean Corpuscular Hemoglobin 32.8 pg (28.0-34.0); Mean Corpuscular Volume 98.6 fl (80-94); Monocytes % 11.5 %; Neutrophils # 5.12 10^3/uL (1.8-7.7); Neutrophils % 58.9 %; Nucleated Red Blood Cells % 0 %; Platelet Count 279 10^3/cmm (130-400); Red Blood Count 3.63 10^6/uL (4.1-5.3); Red Cell Distribution Width 13.2 % (12.1-15.1); White Blood Count 8.7 10^3/uL (4.0-10.0)
[2021-10-25] MEDS: piperacillin-tazobactam 3.375 GM in sodium chloride 0.9% (plus) 50 ML IV ×3 (06:11→21:51)
[2021-10-25] MEDS: sodium chloride 0.9% 1,000 ML 100 ML IV ×2 (08:37→17:52)
--- NOTE | 2021-10-25 10:17 | PC.CHAP ---
Pastoral Care Encounter/Spiritual Assessment Type of Contact [] Declined auto parts professional visit [] Patient/Family/Request visit [] Outpatient visit [] Follow-up visit [] Physician referral [] Code/Alert [x] Routine visit [] Staff referral [] Actively dying [] Patient sleeping [] Family support [] [] Out of room [] Palliative care [] [] Receiving care in room [] Pre-surgical visit [] Trauma [] Long length of stay [] ICU visit [] Other: Relational/Emotional Strength [] Patient feels connected with others/family/visitors/staff [] Distress [] Loneliness/isolation [] Abandonment Spirituality of Patient [] Person of Nayla [] Attends Latter Day of their Nayla [] Believes in Prayer [] Reads Bible or Presybeterian materials [] There are Spiritual issues to be addressed Toll Settlement Clerk Interventions [] Prayer [] Active listening [] Non-anxious presence [] Spiritual/emotional support [] Crisis/trauma care [] Spiritual counseling [] Bereavement support [] Provided bereavement packet [] Provided Bible/devotional materials [] Provided toy/stuffed animal, coloring book to patient or family member [] Provided Communion [] Anointing/[place] [] Salvation [x] Completed spiritual assessment [] Other: Impact on Illness or Injury [] Angry [] Fearful [] Anxious [] Often cries [] Exhaustion [] Unable to work [] Unable to attend voodoo [] Unable to walk/stand [] Unable to read [] Unable to drive [] Unable to eat/drink [] Unable to sleep [] Unable to be with family [] Patient intubated [] Other: Summary feeling better but refused pray Time spent with patient 5 min
[2021-10-26 01:47] VITALS: RESP 16
[2021-10-26] MEDS: morphine 4 mg/mL SDV 1 mL IVP ×2 (01:47→04:40)
[2021-10-26 03:00] VITALS: BP 106/88; PULSE 72; RESP 18; TEMP 36.7; O2SAT 96
[2021-10-26] MEDS: sodium chloride 0.9% 1,000 ML 100 ML IV (04:14)
[2021-10-26 04:40] VITALS: RESP 16
[2021-10-26] MEDS: piperacillin-tazobactam 3.375 GM in sodium chloride 0.9% (plus) 50 ML IV (05:49)
[2021-10-26 05:54] LABS: Basophils # 0.1 10^3/uL (0.0-0.1); Eosinophils # 0.4 10^3/uL (0.0-0.8); Eosinophils % 5.4 %; Hematocrit 35.6 % (42.0-52.0); Hemoglobin 11.9 g/dL (11.7-16.6); Lymphocytes # 1.7 10^3/uL (0.8-4.8); Lymphocytes % 21.9 %; Mean Corpuscular HGB Conc 33.4 g/dL (30.0-36.0); Mean Corpuscular Hemoglobin 32.8 pg (28.0-34.0); Mean Corpuscular Volume 98.1 fl (80-94); Mean Platelet Volume 10.1 fL (7.4-10.4); Monocytes # 0.9 10^3/uL (0.2-0.9); Monocytes % 11.3 %; Neutrophils # 4.73 10^3/uL (1.8-7.7); Neutrophils % 59.8 %; Nucleated Red Blood Cells % 0 %; Platelet Count 298 10^3/cmm (130-400); Red Blood Count 3.63 10^6/uL (4.1-5.3); Red Cell Distribution Width 13.2 % (12.1-15.1); White Blood Count 7.9 10^3/uL (4.0-10.0)
--- NOTE | 2021-10-26 05:54 | PC.NURSE ---
SHIFT SUMMARY Has had a good night. Has been medicated for pain in RLQ abd pain with IV Morphine but says pain is not getting as intense as it was. Ambulated in [place] last evening and was moving much better. Abd soft with tenderness present across lower abd but isadora in RLQ. IV infusing without difficulty at 100ml/hr rate. Receiving IV antibiotics as ordered. NPO after midnight. Is hoping he can go home today
[2021-10-26 06:02] LABS: Anion Gap 17.2 (5-19); Blood Urea Nitrogen 11 mg/dL (6-20); Calcium 8.2 mg/dL (8.5-10.5); Carbon Dioxide 23 mmol/L (22-29); Chloride 103 mmol/L (98-107); Glomerular Filtration Rate 125.5 mL/min (90-130); Glucose 95 mg/dL (65-115); Lipase 58 U/L (13-60); Osmolality Calculated 287 mOsm/kg (285-295); Potassium 4.2 mmol/L (3.5-5.1); Sodium 139 mmol/L (136-145)
[2021-10-26 07:00] VITALS: BP 114/71; PULSE 54; RESP 16; TEMP 36.9; O2SAT 94
--- NOTE | 2021-10-26 08:07 | P.SS_ITS ---
Short Stay Summary Providers Date of Admit/Discharge: 10/27/21 Attending Provider: Alejandro Salas MD Primary Care Provider: Beata Stallings DO Chief Complaint: ABD PAIN/POST SURGERY RELATED HPI History of Present Illness Lucio James is a 41 year old male well-known to me has recently undergone uneventful diagnostic laparoscopy and incidental appendectomy on October 17, 2021. Over the past couple of days patient started to encounter sharp right lower quadrant abdominal pain referred to the private area, patient denies any nausea vomiting fevers or chills or change in bowel habits. He continues to tolerate p.o. intake and passing gas and having bowel movements. Patient denies any NSAID intake or any trauma to the area or heavy lifting or strenuous exercises. Patient symptoms got worse he got very anxious and worried so he came to the emergency department and further work-up was done in the form of blood work that showed WBC count of 10.2, hemoglobin of 13.3 and hematocrit of 39.1, platelets of 309. Otherwise CMP unremarkable except for slight elevation of serum lipase up to 72. CT scan of the abdomen and pelvis: 1. Small hemoperitoneum, predominantly in the right lower quadrant and pelvis, possibly related to continued bleeding at the operative site. Other sources of bleeding cannot be excluded. No definite active extravasation of contrast. Continued clinical and imaging surveillance is recommended. 2. Additional findings, as above. I elected to admit the patient for observation status to monitor his vital signs which continue to be stable as well as to obtain repeat blood work. Review of Systems General: Reports: 10 or more systems reviewed and unremarkable except in HPI and below Home Meds/Allergies Home Medications and Allergies Home Medications Medication Instructions Recorded Confirmed Type multivitamin 1 tab PO DAILY 09/18/21 10/25/21 History Allergies Allergy/AdvReac Type Severity Reaction Status Date / Time No Known Allergies Allergy Verified 10/25/21 06:04 PFSH Acute PFSH: Medical History Abdominal pain Bleeding per rectum Esophagitis Gastritis and duodenitis Hemoperitoneum Postoperative hematoma Family History Denies family history of Anesthesia complication Social History Alcohol intake: current Alcohol intake frequency: 3 or more drinks per day Alcohol type: beer Vitals/I&O/Wt Last Vital Signs Temp 98.5 F 10/26/21 07:00 Pulse 54 L 10/26/21 07:00 Resp 16 10/26/21 07:00 BP 114/71 10/26/21 07:00 Pulse Ox 94 10/26/21 07:00 10/25/21 10/26/21 10/26/21 22:59 06:59 14:59 Intake Total 1575 / 2916.667 1290 / 4206.667 Balance 1575 / 2916.667 1290 / 4206.667 Weight last 48 hrs Weight 202 lb 8 oz Weight 230 lb Physical Exam Narrative: EXAM NARRATIVE: Patient is conscious alert oriented X3 BMI 26.7 Head and neck examination PERRLA no masses no cervical lymphadenopathy no jaundice Cardiac examination audible S1-S2 no murmurs no gallops no arrhythmias Chest is clear bilateral,abscence of Rhonchi or wheezes,no surgical emphysema Abdomen much less tender nondistended soft no organomegaly guarding or rigidity/no signs of peritonitis Incisions are clean dry and intact Extremities no cyanosis no clubbing no edema Hospital Course Admission Diagnoses Patient got admitted for observation and labs were repeated continue to have stable H&H. Patient also continues to have stable vital signs with no evidence of hypotension or tachycardia. Maintained to have adequate urine output, tolerating p.o. intake and passing gas. Further evaluation of the CT scan of the abdomen and pelvis of admission showed stable hematoma without evidence of bleeding. Discharge Summary This is a pleasant 41-year-old gentleman status post diagnostic laparoscopy with incidental appendectomy. Developed hematoma at the surgical site of the appendectomy. Treated conservatively and the plan to discharge patient home on oral antibiotics and pain medications. With education about refraining from heavy lifting or strenuous exercises and have the patient follow-up with me at the office in a week or so SSS Data Data Completed and Pending: Completed Studies During Hospitalization Category Date Time Status CT abdomen pelvis w con* [id number] Urge nt Cat Scan 10/24/21 15:20 Completed Diagnoses at Discharge Discharge Diagnosis (1) Postoperative hematoma: Permanent problem details: Condition is stable Discharge Plan Discharge Patient Disposition: Home Condition: Stable Prescriptions: New hydrocodone-acetaminophen 5-325 mg tablet 1 tab PO Q6H PRN (Reason: pain) Qty: 28 RF: 0 Augmentin 875-125 mg tablet 1 tab PO Q12H Qty: 14 RF: 0 Continued multivitamin Tablet 1 tab PO DAILY RF: 0 pantoprazole [Protonix] 40 mg tablet,delayed release (DR/EC) 40 mg PO DAILY 30 Days Qty: 30 RF: 3 Discharge Orders: Discharge Order (Routine); Ordered 10/26/21 Ordered By: Alejandro Salas Referrals: Randolph Corona DO [Physician] - 11/02/21 10:00 am Alejandro Salas MD [Physician] - (RTC in 2 weeks) Tanner Dickson MD [Physician] - 11/17/21 8:50 am (RTC in one week) Discharge Diet: Advance as tolerated Discharge Activity: Limit activity as instructed Patient Instructions: Hydrocodone/Acetaminophen (By mouth), Amoxicillin/Clavulanate Potassium (By mouth), Opioid Safety Activity Restrictions/Additional Instructions: 1. Patient can shower after 48 hours from surgery 2. Avoid vigorous activity or exercise and avoid NSAIDs 3. Up and walking as tolerated 4. Do not lift more than 5 pounds first 2 weeks after surgery and not more than 25 pounds 6 to 8 weeks after surgery. 5. Do not operate heavy machinery or drive while using pain medications. 6.Contact the office or return to the ER for worsening nausea vomiting fevers or chills, or noticing any redness around incision sites or discharge. Attestations Medical Necessity Statement*: Observation for repeated physical examination and repeat blood work Time Spent in Patient Care*: greater than 30 min Specific Discharge Activities: Specific discharge activities: educating patient and educating and/or supporting family/caregiver Status at Discharge: Cognitive status at discharge: cognitively intact , Behavioral status at discharge: cooperative , Functional status at discharge: independent ambulation Overall status at discharge: patient is progressing back to baseline Quality Metrics Clinical Quality Measures: During this hospital stay, did patient experience: None Coding Level of Care Code Acute Dressing Machine Operator for Cedric Fischer Diagnoses Postoperative hematoma
[2021-10-26 11:00] VITALS: BP 115/74; PULSE 62; RESP 18; TEMP 36.7; O2SAT 100
--- NOTE | 2021-10-26 11:14 | PC.NURSE ---
patient verbalized understanding of discharge instructions, home medications, and follow up appointments. prescriptions will be delivered by [facility]. patient stated that his ride would be here around noon.
[2021-10-26 12:23] VITALS: BP 115/74; PULSE 62; RESP 18; TEMP 36.7; O2SAT 100
== END 2021-10-26 12:26 | disposition home or self-care (01) ==
LOC: ER 21:55 → MEDSURG 22:48
PROVIDERS: Physician Assistant; Admitting Provider Surgery; Emergency Provider Emergency Medicine; PCP Family Medicine; Visit Provider Surgery
DX: K91.870 Postprocedural hematoma of a digestive system organ or structure following a digestive system procedure (principal); K66.1 Hemoperitoneum
CPT/HCPCS: 36415; 74177; 80048; 80053; 81003; 83605; 83690; 85025; 96365; 96375; 96376; 99285; G0378; J1170; J2270; J2405; J2543; J7030; Q9967

== ENCOUNTER → 2022-05-03 16:20 | Outpatient (BNVA) | payer OTHER, SELFPAY | PROVIDERS: PCP Family Medicine; Visit Provider Nurse Practitioner Psychiatric/Mental Health | DX: F41.1 Generalized anxiety disorder (principal); Z03.89 Encounter for observation for other suspected diseases and conditions ruled out; F10.20 Alcohol dependence, uncomplicated | CPT/HCPCS: 80053 ==

== ENCOUNTER → 2022-06-24 19:35 | Outpatient (BNVA) | payer SELFPAY | PROVIDERS: PCP Family Medicine; Visit Provider Nurse Practitioner Family | DX: J06.9 Acute upper respiratory infection, unspecified (principal); Z20.822 Contact with and (suspected) exposure to COVID-19 | CPT/HCPCS: 87426 ==

== ENCOUNTER 2022-07-08 04:58 | Inpatient (IN) | payer SELFPAY ==
[2022-07-08] VITALS (12 sets, daily range): BP systolic 102–133; BP diastolic 67–85; PULSE 58–93; RESP 16–18; TEMP 36.5–36.7; O2SAT 92–97; BMI 25.9
--- NOTE | 2022-07-08 06:22 | ED_ITS ---
HPI - Anxiety General: Chief Complaint: Anxiety Stated Complaint: Anxiety Time Seen by Provider: 07/08/22 06:12 History of Present Illness: This patient is a 42 year old male presenting to the ED stating that he is going to go to the stress unit for a few days. He reports that he has been going through a hard time and has been drinking a lot of alcohol in order to calm his nerves. He denies SI, but his family notes that he has been making statements about wanting to give up. He denies this. He does state that he has been very angry and that the next person to cross his path is going to get fucked up . His roommate says that he has been saying that he wants to go out and beat up on people. The patient denies that he wants to harm any particular people. He has been in the stress unit before but denies that he has ever attempted to harm himself. Then he added that he is drinking himself to . He also has been treated recently for an upper respiratory infection and is using an inhaler. He is a smoker. He was recently on a course of prednisone for the URI but has finished it. Associated symptoms: Deny chest pain, chills, fever(s), headache(s), malaise, nausea or vomiting Review of Systems Const: Denies: fever(s), chills, fatigue or malaise Eyes: Denies: change in vision ENMT: Denies: odynophagia Card: Denies: chest pain or swelling of feet/ankles Resp: Reports: non-productive cough; Denies: dyspnea or productive cough GI: Denies: abdominal pain, nausea or vomiting : Denies: flank pain Musc: Denies: neck pain or back pain Skin/Breast: Denies: rash Neuro: Denies: headache(s), numbness in extremities or weakness in extremities Psych: Reports: anxiety, depression, mood swings, loss of interest, irritability and other (rage and anger) Reymundo/Lymph: Denies: easy bruising or easy bleeding [facility] ED PFSH: Medical History (Updated 07/08/22 @ 14:14 by Ana Rosa Abraham MD) Abdominal pain Alcohol dependence Bleeding per rectum Esophagitis Gastritis and duodenitis Hemoperitoneum Hx of fracture of hip left hip/femur Postoperative hematoma Condition is stable Psychiatric care Family History Denies family history of Anesthesia complication Social History Smoking and tobacco status: current every day smoker cigarettes Packs smoked per day: 0.5 Years cigarettes smoked: 15 Quit status (tobacco): not considering quitting Second hand smoke exposure: No Alcohol intake: current Alcohol intake frequency: 3 or more drinks per day Alcohol type: beer Physical Exam Const: COMMON NORMALS: no acute distress, patient oriented x3, no limitations and alert GENERAL APPEARANCE: cooperative, comfortable and odor of alcohol detected HENMT: HEAD & SCALP: normal to inspection FACE & SINUS: normal facial exam Eye: GENERAL EYE: appearance normal, both eyes and all related structures Neck/C-Spine: COMMON NORMALS: supple, no meningeal signs and no JVD Chest: COMMONS NORMALS: normal inspection of the chest Resp: COMMON NORMALS: normal respiratory effort, No use of accessory muscles and clear to auscultation bilaterally AUSCULTATION: clear to auscultation bilaterally Cardio: COMMON NORMALS: no JVD, regular rate, regular rhythm and No murmurs present (Cardio) RATE: regular rate RHYTHM: regular rhythm GI: COMMON NORMALS: Normal to inspection, nondistended, normoactive bowel sounds present, Soft to palpation and non-tender INSPECTION: Yes normal to inspection AUSCULTATION: Yes normoactive bowel sounds PALPATION: Yes Soft to palpation Back/Pelvis: COMMON NORMALS: thoracic and lumbar spine normal to inspection Extremity: COMMON NORMALS: normal to inspection Neuro: COMMON NORMALS: patient oriented x3, moves all extremities, no focal motor deficits and no sensory deficits noted SENSORIUM/ORIENTATION: Yes alert MENINGEAL SIGNS: Yes no meningeal signs Psych: COMMON NORMALS: mental status grossly normal (intoxicated), cooperative, denies homicidal ideation and denies suicidal ideation ACTIVITY/MOTOR BEHAVIOR: Yes restless SPEECH: Yes loud JUDGEMENT: Limited judgement present (Psych) Skin: COMMON NORMALS: no rashes or lesions noted and turgor normal GENERAL SKIN EXAM: no rashes or lesions noted and turgor normal Course ED course: Patient consistent that he thinks he needs to come in. He was cooperative in the ED but thinks that he will lose his temper and hurt someone. Dr. Hooper accepted him to the [facility] and he was given a banana bag in the ED. [facility] requested a repeat etoh level prior to his transfer to their care and that is pending. Vital Signs: Vital signs: Vital Signs Temperature 98.1 F 07/08/22 05:03 Pulse Rate 64 07/08/22 13:30 Respiratory Rate 16 07/08/22 13:10 Blood Pressure 102/73 07/08/22 13:30 Pulse Oximetry 92 07/08/22 13:30 Oxygen Delivery Me thod 07/08/22 13:30 MDM - Anxiety Medical Decision Making Patient with history of alcohol abuse and is intoxicated currently. He wants to come to the stress unit to get help with his depression, anger. He is not suicidal, but says that he cannot control his anger and wants to hurt people. Labs pending, then eval for psych. Currently no beds in the [facility] and very limited throughout the state. He has been treated for a URI - he is over 2 weeks into the symptoms and even if it were COVID he would no longer be contagious, and testing is not going to be useful. Lab Data : 07/08/22 06:45 07/08/22 06:45 Laboratory Results WBC 5.0 10^3/uL (4.0-10.0) 07/08/22 06:45 RBC 4.72 10^6/uL (4.1-5.3) 07/08/22 06:45 Hgb 15.1 g/dL (11.7-16.6) 07/08/22 06:45 Hct 44.2 % (42.0-52.0) 07/08/22 06:45 MCV 93.6 fl (80-94) 07/08/22 06:45 MCH 32.0 pg (28.0-34.0) 07/08/22 06:45 MCHC 34.2 g/dL (30.0-36.0) 07/08/22 06:45 RDW 13.2 % (12.1-15.1) 07/08/22 06:45 Plt Count 160 10^3/cmm (130-400) 07/08/22 06:45 MPV 10.2 fL (7.4-10.4) 07/08/22 06:45 Neut % (Auto) 35.0 % 07/08/22 06:45 Lymph % (Auto) 45.6 % 07/08/22 06:45 [place] % (Auto) 10.2 % 07/08/22 06:45 Eos % (Auto) 6.4 % 07/08/22 06:45 Baso % (Auto) 2.4 % 07/08/22 06:45 Neut # (Auto) 1.74 10^3/uL (1.8-7.7) L 07/08/22 06:45 Lymph # (Auto) 2.3 10^3/uL (0.8-4.8) 07/08/22 06:45 [place] # (Auto) 0.5 10^3/uL (0.2-0.9) 07/08/22 06:45 Eos # (Auto) 0.3 10^3/uL (0.0-0.8) 07/08/22 06:45 Baso # (Auto) 0.1 10^3/uL (0.0-0.1) 07/08/22 06:45 Nucleated RBC % (auto) 0 % 07/08/22 06:45 Nucleated RBCs # 0.0 /100WBC 07/08/22 06:45 Sodium 144 mmol/L (136-145) 07/08/22 06:45 Potassium 3.6 mmol/L (3.5-5.1) 07/08/22 06:45 Chloride 104 mmol/L (98-107) 07/08/22 06:45 Carbon Dioxide 28 mmol/L (22-29) 07/08/22 06:45 Anion Gap 15.6 (5-19) 07/08/22 06:45 BUN 7 mg/dL (6-20) 07/08/22 06:45 Creatinine 0.8 mg/dL (0.7-1.2) 07/08/22 06:45 GFR Calculation 107.1 mL/min (90-130) 07/08/22 06:45 Glucose 89 mg/dL (65-115) 07/08/22 06:45 Calculated Osmolality 295 mOsm/kg (285-295) 07/08/22 06:45 Calcium 8.3 mg/dL (8.5-10.5) L 07/08/22 06:45 Total Bilirubin 0.3 mg/dL (0.15-1.2) 07/08/22 06:45 AST 33 U/L (0-40) 07/08/22 06:45 ALT 16 U/L (0-41) 07/08/22 06:45 Alkaline Phosphatase 48 U/L (40-130) 07/08/22 06:45 Total Protein 6.7 g/dL (6.6-8.7) 07/08/22 06:45 Albumin 4.0 g/dL (3.5-5.2) 07/08/22 06:45 Globulin 2.7 g/dL (1.3-4.6) 07/08/22 06:45 Salicylates < 0.3 mg/dL (3-10) L 07/08/22 06:45 Urine Opiates Screen Negative ng/mL (Negative) 07/08/22 07:00 Acetaminophen < 5.0 ug/mL (10-30) L 07/08/22 06:45 Ur Barbiturates Screen Negative ng/mL (Negative) 07/08/22 07:00 Ur Phencyclidine Scrn Negative ng/mL (Negative) 07/08/22 07:00 Ur Amphetamines Screen Negative ng/mL (Negative) 07/08/22 07:00 U Benzodiazepines Scrn Negative ng/mL (Negative) 07/08/22 07:00 Urine Cocaine Screen Negative ng/mL (Negative) 07/08/22 07:00 U Marijuana (THC) Screen Negative ng/mL (Negative) 07/08/22 07:00 Ethyl Alcohol 336 mg/dL (0-10) H* 07/08/22 06:45 Discharge Plan Discharge Patient Disposition: Admitted As Inpatient Admit Provider: Arash Hooper Clinical Impression: Alcohol dependence, Alcohol intoxication, Excessive anger Condition: Stable Coding Level of Care Code ED Accounting Analyst for Shelleyg Fwd Exam Comprehensive
[2022-07-08 07:28] LABS: Basophils # 0.1 10^3/uL (0.0-0.1); Basophils % 2.4 %; Eosinophils # 0.3 10^3/uL (0.0-0.8); Eosinophils % 6.4 %; Hematocrit 44.2 % (42.0-52.0); Hemoglobin 15.1 g/dL (11.7-16.6); Lymphocytes # 2.3 10^3/uL (0.8-4.8); Lymphocytes % 45.6 %; Mean Corpuscular HGB Conc 34.2 g/dL (30.0-36.0); Mean Corpuscular Volume 93.6 fl (80-94); Mean Platelet Volume 10.2 fL (7.4-10.4); Monocytes # 0.5 10^3/uL (0.2-0.9); Monocytes % 10.2 %; Neutrophils # 1.74 10^3/uL (1.8-7.7); Nucleated Red Blood Cells % 0 %; Platelet Count 160 10^3/cmm (130-400); Red Blood Count 4.72 10^6/uL (4.1-5.3); Red Cell Distribution Width 13.2 % (12.1-15.1)
[2022-07-08 07:42] LABS: Alanine Aminotransferase 16 U/L (0-41); Alkaline Phosphatase 48 U/L (40-130); Anion Gap 15.6 (5-19); Aspartate Amino Transferase 33 U/L (0-40); Blood Urea Nitrogen 7 mg/dL (6-20); Calcium 8.3 mg/dL (8.5-10.5); Carbon Dioxide 28 mmol/L (22-29); Chloride 104 mmol/L (98-107); Globulin 2.7 g/dL (1.3-4.6); Glomerular Filtration Rate 107.1 mL/min (90-130); Glucose 89 mg/dL (65-115); Osmolality Calculated 295 mOsm/kg (285-295); Potassium 3.6 mmol/L (3.5-5.1); Sodium 144 mmol/L (136-145); Total Bilirubin 0.3 mg/dL (0.15-1.2); Total Protein 6.7 g/dL (6.6-8.7)
[2022-07-08 08:11] LABS: Amphetamines Screen Urine Negative (Negative); Barbiturates Screen Urine Negative (Negative); Benzodiazepines Screen Urine Negative (Negative); Cocaine Screen Urine Negative (Negative); Opiate Screen Urine Negative (Negative); PCP Screen Urine Negative (Negative); THC Screen Urine Negative (Negative)
[2022-07-08 08:53] LABS: Acetaminophen < 5.0 ug/mL (10-30); Salicylate < 0.3 mg/dL (3-10)
[2022-07-08 08:55] LABS: Alcohol Level 336 mg/dL (0-10)
[2022-07-08] MEDS: folic acid 1 MG, multivitamin inj 10 ML, thiamine 100 MG in sodium chloride 0.9% 1,000 ML 252.8 MG IV (11:18)
[2022-07-08] MEDS: OLANZapine 5 mg TABLET PO (11:18)
[2022-07-08 14:53] LABS: Alcohol Level 183 mg/dL (0-10)
[2022-07-08] MEDS: gabapentin 300 mg Capsule PO (16:22)
[2022-07-08] MEDS: LORazepam 2 mg Tablet PO (16:22)
[2022-07-08] MEDS: gabapentin 300 mg Capsule 600 MG PO (21:44)
[2022-07-09 06:00] VITALS: BP 131/84; PULSE 63; RESP 18; TEMP 36.5; O2SAT 95
[2022-07-09] MEDS: escitalopram 10 mg Tablet 20 MG PO (09:07)
[2022-07-09] MEDS: thiamine 100 mg Tablet PO (09:07)
[2022-07-09] MEDS: folic acid 1 mg Tablet PO (09:07)
[2022-07-09] MEDS: naltrexone hcl 50 mg Tablet PO (09:08)
[2022-07-09] MEDS: pantoprazole DR 40 mg Tablet PO (09:08)
[2022-07-09] MEDS: multivitamin therapeutic Tablet 1 TAB PO (09:08)
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
[2022-07-09 14:00] VITALS: BP 121/83; PULSE 74; RESP 18; TEMP 36.6; O2SAT 96
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
[2022-07-09] MEDS: acetaminophen 325 mg Tablet 650 MG PO ×2 (14:18→20:16)
[2022-07-09] MEDS: LORazepam 2 mg Tablet PO (14:18)
[2022-07-09] MEDS: gabapentin 300 mg Capsule PO (14:19)
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
[2022-07-09 19:54] VITALS: BP 131/98; PULSE 87; RESP 18; TEMP 36.9; O2SAT 96
[2022-07-09] MEDS: gabapentin 300 mg Capsule 600 MG PO (20:15)
[2022-07-09] MEDS: trazodone 50 mg Tablet PO (20:15)
[2022-07-09 21:16] VITALS: PULSE 65; RESP 17; O2SAT 98
[2022-07-09] MEDS: albuterol 8 gm MDI 2 PUFF INHALATION (21:17)
[2022-07-10 04:05] VITALS: PULSE 70; RESP 17; O2SAT 98
[2022-07-10] MEDS: albuterol 8 gm MDI 2 PUFF INHALATION (04:06)
[2022-07-10 06:00] VITALS: BP 123/81; PULSE 83; RESP 17; TEMP 36.7; O2SAT 96
[2022-07-10] MEDS: acetaminophen 325 mg Tablet 650 MG PO ×2 (06:18→19:40)
[2022-07-10] MEDS: OLANZapine 5 mg ODT PO (06:19)
--- NOTE | 2022-07-10 06:40 | PC.NURSE ---
PATIENT IS DOWNPLAYING HIS WITHDRAWAL SYMPTOMS. INITIALLY HE SAID HE WAS DOING MUCH BETTER, BUT WHEN THIS NURSE REASSESSED HIM AND WALKED UP BEHIND HIM, THIS NURSE NOTED TREMORS WHEN PATIENT DID NOT REALIZE I WAS OBSERVING. THIS NURSE ASKED HIM TO BE MORE TRUTHFUL WHEN ASKED SYMPTOMS SO WE CAN PREVENT SEIZURES AND OTHER SERIOUS POSSIBLE SYMPTOMS FROM OCCURRING. PT VERBALIZED UNDERSTANDING.
[2022-07-10] MEDS: LORazepam 2 mg Tablet PO ×2 (06:45→19:37)
[2022-07-10] MEDS: thiamine 100 mg Tablet PO (08:57)
[2022-07-10] MEDS: pantoprazole DR 40 mg Tablet PO (08:57)
[2022-07-10] MEDS: escitalopram 10 mg Tablet 20 MG PO (08:57)
[2022-07-10] MEDS: naltrexone hcl 50 mg Tablet PO (08:57)
[2022-07-10] MEDS: folic acid 1 mg Tablet PO (08:57)
[2022-07-10] MEDS: multivitamin therapeutic Tablet 1 TAB PO (08:57)
[2022-07-10 14:00] VITALS: BP 125/77; PULSE 86; RESP 20; TEMP 36.6; O2SAT 94
[2022-07-10] MEDS: gabapentin 300 mg Capsule PO (14:26)
--- NOTE | 2022-07-10 18:52 | P.NPUPN_ITS ---
Subjective NPU Subjective: Lucio is a 42-year-old white male who had reported significant alcohol use along with mood instability admitted with concerns over suicidal thoughts and concerns by family members that he was consuming enough alcohol to cause him to succumb to physical consequences of alcohol use. He had reported a past history of periods of increased irritability. He reports that he had been motivated to work but states that he continued to struggle with remaining sober and reported a family significant family history of alcohol dependence. He reported having occasional periods of depression lasting 4 days and states that his medications have not been helpful in the past. He had reported a period of sobriety for over a year while he was in half-way. He had reported a history of multiple DUIs. He had reported that he would not be willing to enter into rehab rehabilitation on an inpatient basis but would consider it on an outpatient basis. Mental Status Exam MSE Comments: Is a casually dressed white male who appeared his stated age he was alert and oriented to person place and time. His gait was adequate his hygiene was poor. there was no evidence of any abnormal involuntary motor movements tics tremors appreciated. There was no clear evidence of delusional thinking. He did not appear to be responding to internal stimuli. His mood was described as up-and-down. His affect appeared somewhat constricted in range his insight was poor. his judgment was poor. his impulse control was poor. Vitals/I&O/Wt Last Vital Signs Temp 97.8 F 07/10/22 14:00 Pulse 86 07/10/22 14:00 Resp 20 H 07/10/22 14:00 BP 125/77 07/10/22 14:00 Pulse Ox 94 07/10/22 14:00 O2 Del Method 07/10/22 04:05 Data NPU : 07/08/22 06:45 07/08/22 06:45 A&P Assessment and plan (1) Suicidal ideation: Status: Acute (2) Alcohol intoxication: Status: Acute (3) Alcohol dependence: Status: Chronic (4) Generalized anxiety disorder: Status: Acute Plan Is a 42-year-old white male with a history of alcohol dependence and reported generalized anxiety disorder admitted with suicidal ideation voluntarily. 1. CIWA protocol 2. Continue lexapro and naltrexone and add Seroquel 50mg to target mood instability. 3. Engage patient in milieu, individual and group therapy 4. Continue to monitor for side effects of medication. Involuntary Hold Information 96 Hour Hold: 96 Hour Involuntary Admission: No Attestations NPU Medical Necessity Statement*: Inpatient hospitalization is medically necessary and the clinically appropriate intervention at this time. We will monitor medications and make changes as indicated. Patient will be in the hospital for over two midnights. Likely length of stay is three to five days. Coding Level of Care Code Established Pt Acute Paper Novelty Maker for Cedric Fischer Patient Type Established History Problem Focused Exam Problem Focused Medical Decision Making Straight Forward Diagnoses Suicidal ideation R45.851 Alcohol intoxication F10.929 Alcohol dependence F10.20 Generalized anxiety disorder F41.1
[2022-07-10] MEDS: gabapentin 300 mg Capsule 600 MG PO (21:03)
[2022-07-10] MEDS: quetiapine 25 mg Tablet 50 MG PO (21:03)
[2022-07-10 21:43] VITALS: PULSE 64; RESP 16; O2SAT 97
[2022-07-10 22:00] VITALS: BP 115/73; PULSE 111; RESP 17; TEMP 36.6; O2SAT 97
[2022-07-10] MEDS: trazodone 50 mg Tablet PO (22:23)
[2022-07-11 06:00] VITALS: BP 115/73; PULSE 111; RESP 17; TEMP 36.6; O2SAT 97
[2022-07-11 06:28] VITALS: BP 110/73; PULSE 76; RESP 18; TEMP 36.8; O2SAT 99
[2022-07-11] MEDS: folic acid 1 mg Tablet PO (07:53)
[2022-07-11] MEDS: pantoprazole DR 40 mg Tablet PO (07:54)
[2022-07-11] MEDS: multivitamin therapeutic Tablet 1 TAB PO (07:54)
[2022-07-11] MEDS: thiamine 100 mg Tablet PO (07:54)
[2022-07-11] MEDS: naltrexone hcl 50 mg Tablet PO (07:54)
[2022-07-11] MEDS: hyDROXYzine 25 mg Capsule 50 MG PO (07:57)
[2022-07-11] MEDS: escitalopram 10 mg Tablet 20 MG PO (07:58)
[2022-07-11] MEDS: LORazepam 2 mg Tablet PO ×3 (11:46→20:00)
[2022-07-11 13:59] VITALS: PULSE 90; RESP 18; O2SAT 96
[2022-07-11] MEDS: albuterol 8 gm MDI 2 PUFF INHALATION (13:59)
[2022-07-11 14:00] VITALS: BP 118/78; PULSE 91; RESP 16; TEMP 36.8; O2SAT 97
[2022-07-11] MEDS: gabapentin 300 mg Capsule PO (15:27)
--- NOTE | 2022-07-11 16:35 | P.NPUPN_ITS ---
Subjective NPU Subjective: Patient is a 42-year-old white male with alcohol dependence generalized anxiety disorder and depressive disorder not otherwise specified admitted with suicidal ideation along with increased depressed mood mood stability mood instability and increased feelings of hopelessness. Patient had reported some difficulties with falling asleep last night. He reports being motivated to receive help for his alcohol abuse. He had been compliant on the milieu and reports that he has been under better control of his anger. He had reported having good support at home and wishes to return home and resume his job while receiving outpatient treatment. He reports no suicidal thoughts currently. He reports continued cravings for alcohol. He had expressed interest in being considered for intramuscular Vivitrol on an outpatient basis. Mental Status Exam MSE Comments: Is a casually dressed white male who appeared his stated age. he was alert and oriented to person place and time. His gait was adequate his hygiene was improved today. there was no evidence of any abnormal involuntary motor movements tics or tremors appreciated. There was no clear evidence of delusional thinking. He did not appear to be responding to internal stimuli. His mood was described as better His affect appeared somewhat constricted in range. his insight was improving. his judgment was poor. his impulse control was poor. His attention span was adequate. Vitals/I&O/Wt Last Vital Signs Temp 98.2 F 07/11/22 14:00 Pulse 91 07/11/22 14:00 Resp 16 07/11/22 14:00 BP 118/78 07/11/22 14:00 Pulse Ox 97 07/11/22 14:00 O2 Del Method 07/11/22 14:00 Data NPU : 07/08/22 06:45 07/08/22 06:45 A&P Assessment and plan (1) Suicidal ideation: Status: Acute (2) Alcohol intoxication: Status: Acute (3) Alcohol dependence: Status: Chronic (4) Generalized anxiety disorder: Status: Acute (5) Depressed mood: Status: Acute Plan Is a 42-year-old white male with a history of alcohol dependence and reported g eneralized anxiety disorder admitted with suicidal ideation voluntarily. 1. CIWA protocol 2. Continue lexapro and naltrexone and increase Seroquel to 100mg at night to target mood instability. 3. Engage patient in milieu, individual and group therapy 4. Continue to monitor for side effects of medication. Involuntary Hold Information 96 Hour Hold: 96 Hour Involuntary Admission: No Attestations NPU Medical Necessity Statement*: Inpatient hospitalization is medically necessary and the clinically appropriate intervention at this time. We will monitor medications and make changes as indicated. Patient will be in the hospital for likely length of stay is one to two days. Coding Level of Care Code Established Pt Acute Dog Or Horse Racing Official for Cedric Fischer Patient Type Established History Problem Focused Exam Problem Focused Medical Decision Making Straight Forward Diagnoses Suicidal ideation R45.851 Alcohol intoxication F10.929 Alcohol dependence F10.20 Generalized anxiety disorder F41.1 Depressed mood R45.89
[2022-07-11] MEDS: acetaminophen 325 mg Tablet 650 MG PO (18:24)
[2022-07-11] MEDS: gabapentin 300 mg Capsule 600 MG PO (19:59)
[2022-07-11] MEDS: quetiapine 100 mg Tablet PO (20:00)
[2022-07-11] MEDS: trazodone 50 mg Tablet PO (20:00)
[2022-07-11] MEDS: ibuprofen 600 mg Tablet PO (20:02)
[2022-07-11 21:18] VITALS: BP 127/85; PULSE 101; RESP 16; TEMP 36.4; O2SAT 96
[2022-07-12 06:00] VITALS: BP 102/62; PULSE 106; RESP 15; TEMP 36.4; O2SAT 96
[2022-07-12] MEDS: acetaminophen 325 mg Tablet 650 MG PO ×2 (07:17→12:07)
[2022-07-12] MEDS: LORazepam 2 mg Tablet PO ×2 (08:27→12:26)
[2022-07-12] MEDS: folic acid 1 mg Tablet PO (08:28)
[2022-07-12] MEDS: thiamine 100 mg Tablet PO (08:28)
[2022-07-12] MEDS: naltrexone hcl 50 mg Tablet PO (08:28)
[2022-07-12] MEDS: escitalopram 10 mg Tablet 20 MG PO (08:28)
[2022-07-12] MEDS: multivitamin therapeutic Tablet 1 TAB PO (08:28)
[2022-07-12] MEDS: pantoprazole DR 40 mg Tablet PO (08:29)
--- NOTE | 2022-07-12 11:23 | PC.NURSE ---
IN ROOM. AROUSES TO VOICE. PT DENIES SI/HI AND AVH AT THIS TIME. PT SCORED 13 ON CIWA, ATIVAN WAS GIVEN ORDERED. PT STATES HE IS READY TO DC TODAY LONG HE GETS A WORK NOTED. ALL QUESTIONS ANSWERED AND SUPPORT.
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
[2022-07-12 13:36] VITALS: BP 102/62; PULSE 106; RESP 15; TEMP 36.4; O2SAT 96
== END 2022-07-12 14:12 | disposition home or self-care (01) | DRG 880 ==
LOC: ER 06:23 → NP 14:14
PROVIDERS: Admitting Provider Psychiatry & Neurology Psychiatry; Emergency Provider Emergency Medicine; PCP Family Medicine; Visit Provider Psychiatry & Neurology Psychiatry
DX: F41.1 Generalized anxiety disorder (principal); R45.851 Suicidal ideations; R45.4 Irritability and anger; F32.A Depression, unspecified; F10.229 Alcohol dependence with intoxication, unspecified; Y90.8 Blood alcohol level of 240 mg/100 ml or more; F17.210 Nicotine dependence, cigarettes, uncomplicated; Z81.8 Family history of other mental and behavioral disorders
CPT/HCPCS: 80053; 80306; 80307; 85025; 94640; 96360; 97150; 97165; 99285; J3411; J3490; J3535; J7030

== ENCOUNTER 2022-10-10 07:48 | Emergency (ER) | payer SELFPAY ==
[2022-10-10 08:00] VITALS: BP 137/91; PULSE 76; RESP 14; TEMP 36.6; O2SAT 98; BMI 29.0
--- NOTE | 2022-10-10 08:20 | W.ED.HA ---
HPI - Headache General: Chief Complaint: Headache Stated Complaint: headpain Time Seen by Provider: 10/10/22 08:02 History of Present Illness: Patient is a 42-year-old male comes to the ED with a headache. Symptoms started 3 days ago. Headache is located in the forehead. He rates that a 9 out of 10. He endorses having nausea but denies any episodes of emesis. Patient has never had a headache like this and has no history of migraine headaches. Lights and loud noises make headache worse. He has taken rckj-osb-jwowlzf migraine medication over the last 2 days and it has not helped. Denies any neurological symptoms such as vision changes, numbness tingling or weakness to 1 side of his body or face. Associated symptoms: Reports nausea; Deny chest pain, fever(s), rash or vomiting Review of Systems Const: Denies: fever(s), chills or fatigue Eyes: Reports: photophobia; Denies: change in vision or eye discomfort ENMT: Denies: throat pain, odynophagia, nasal discharge or nasal congestion Card: Denies: chest pain, palpitations, edema, swelling of feet/ankles, dyspnea on exertion or orthopnea Resp: Denies: dyspnea, productive cough or non-productive cough GI: Reports: nausea; Denies: abdominal pain, vomiting, diarrhea, constipation or hematochezia : Denies: flank pain, difficulty urinating, dysuria or hematuria Musc: Denies: neck pain, back pain or extremity swelling Skin/Breast: Denies: rash or new lesions Neuro: Reports: headache(s); Denies: numbness in extremities or weakness in extremities PFS ED PFSH: Medical History Abdominal pain Alcohol dependence Bleeding per rectum Esophagitis Gastritis and duodenitis Hemoperitoneum Hx of fracture of hip left hip/femur Postoperative hematoma Condition is stable Psychiatric care Family History Denies family history of Anesthesia complication Social History (Updated 07/19/22 @ 08:20 by Ardiana Morfin) Smoking and tobacco status: current every day smoker cigarettes Packs smoked per day: 0.5 Years cigarettes smoked: 15 Quit status (tobacco): not considering quitting Second hand smoke exposure: No Alcohol intake: former Year of sobriety/quit date alcohol: 2021 Physical Exam Const: COMMON NORMALS: patient oriented x3 and alert GENERAL APPEARANCE: cooperative HENMT: COMMON NORMALS: normocephalic HEAD & SCALP: normocephalic MOUTH: Normal oral and palatal mucosa present THROAT: posterior oropharynx normal and uvula midline Eye: COMMON NORMALS: Equal, round and reactive pupils present and EOMs intact bilaterally GENERAL EYE: appearance normal, both eyes and all related structures PUPIL: Yes Equal, round and reactive pupils present Neck/C-Spine: COMMON NORMALS: supple GENERAL: Yes normal visual inspection Lymph: LYMPHATIC: no lymphadenopathy noted Resp: COMMON NORMALS: normal respiratory effort, No retractions, No use of accessory muscles and clear to auscultation bilaterally AUSCULTATION: clear to auscultation bilaterally Cardio: COMMON NORMALS: regular rate, regular rhythm, S1 normal heart sound present, S2 normal heart sound present, No gallops present (Cardio), No clicks present (Cardio), No murmurs present (Cardio) and Peripheral pulses 2+ throughout RATE: regular rate RHYTHM: regular rhythm HEART SOUNDS: S1 normal heart sound present and S2 normal heart sound present PERIPHERAL PULSES: Peripheral pulses 2+ throughout GI: COMMON NORMALS: Normal to inspection, nondistended, normoactive bowel sounds present, Soft to palpation, non-tender and no masses PALPATION: Yes Soft to palpation : COMMON NORMALS: Yes no CVA tenderness BLADDER/KIDNEY EXAM: Yes no CVA tenderness Back/Pelvis: COMMON NORMALS: no CVA tenderness Extremity: GENERAL: Yes normal exam except as noted Neuro: COMMON NORMALS: patient oriented x3, CN's II-XII intact bilaterally, moves all extremities, no focal motor deficits and no sensory deficits noted SENSORIUM/ORIENTATION: Yes alert SENSORY EXAM: Yes extremities (intact) MOTOR EXAM: 5/5 motor strength present throughout Skin: COMMON NORMALS: no rashes or lesions noted GENERAL SKIN EXAM: no rashes or lesions noted and dry skin Course Vital Signs: Vital signs: Vital Signs Temperature 97.8 F 10/10/22 08:00 Pulse Rate 77 10/10/22 09:00 Respiratory Rate 16 10/10/22 09:00 Blood Pressure 124/84 10/10/22 09:00 Pulse Oximetry 97 10/10/22 09:00 Oxygen Delivery Me thod 10/10/22 09:00 MDM - Headache Medical Decision Making Patient is a 42-year-old male comes to the ED with migraine type headache. This is his first time patient has ever had a headache like this. He endorses having nausea and photophobia. Vitals are stable. Exam of patient is benign. Head CT showed no acute findings. Patient was given IV Toradol, Reglan, Decadron and Benadryl here in the ED and his symptoms improved. His headache went from a 9 out of 10 to a 4 out of 10. He said his headache is manageable he is ready to go home and rest. Patient diagnosed with migraine headache and was discharged home. Follow-up with PCP in the next week for reevaluation. Return ED precautions given. Patient understood and agreed with plan. Lab Data Radiology Impressions Head CT 10/10/22 08:26 IMPRESSION: 1. No evidence of intracranial hemorrhage or mass effect 2. No acute intracranial findings. Discharge Plan Discharge Patient Disposition: Home Clinical Impression: Migraine headache Qualifiers: Migraine type: without aura Status migrainosus presence: without status migrainosus Intractability: not intractable Qualified Code(s): G43.009 - Migraine without aura, not intractable, without status migrainosus Condition: Stable Prescriptions: No Action albuterol sulfate 90 mcg/actuation HFA aerosol inhaler 2 puff inhalation Q4H PRN (Reason: shortness of breath or wheezing) Qty: 8.5 0RF multivitamin Tablet 1 tab PO DAILY Tylenol Ex Str Rapid Release 500 mg Tablet 1,000 mg PO Q6H PRN (Reason: Pain) escitalopram oxalate 20 mg tablet 20 mg PO QAM Discharge Orders: Discharge ED (Routine); Ordered 10/10/22 Ordered By: Bashir Barros Referrals: Beata Stallings DO [Primary Care Provider] - Discharge Diet: Regular Discharge Activity: Increase activity as tolerated Patient Instructions: Migraine Headache (ED) Activity Restrictions/Additional Instructions: Follow-up with medical provider as directed in the next 7 to 10 days for reevaluation. Take [id number] Excedrin, Tylenol or Motrin for any reoccurring headaches. Return to the ER or your medical provider if condition worsens. Please read and understand discharge instructions. Thank you for choosing [facility] for your healthcare needs today. Please realize this is an emergency room and that we are providing you with a medical screening exam and this may not be complete and all inclusive of all the testing and or work up that you may need to determine your ailment or severity of your illness. It is very important that you follow up as instructed or that you return to the Emergency Department should you have concerns or if your condition changes or worsens in any way. Coding Level of Care Code ED Case Management Assistant for [facility] Fwd Exam Comprehensive
--- NOTE | 2022-10-10 08:26 | CT_ITS ---
WS: [id number] CT HEAD TECHNIQUE: Noncontrast CT of the head obtained from the skullbase to the vertex. CLINICAL INFORMATION: first time migraine headache COMPARISON: None. DLP: 1128.[address] scans at [facility] use at least one of these dose optimization techniques: automated e xposure control; mA and/or kV adjustment per patient size (includes targeted exams where dose is matc hed to clinical indication); or iterative reconstruction. FINDINGS: No evidence of intracranial hemorrhage or mass effect. Ventricular system and basal cisterns are cruz nt. No extra-axial fluid collections. No evidence of mass or mass effect. Normal roque-white different iation. Paranasal sinuses and mastoid air cells are well aerated. Mild mucosal thickening in the ethmoid air cells. .Normal visualized soft tissues. CT/CT head wo con* [id number] IMPRESSION: 1. No evidence of intracranial hemorrhage or mass effect 2. No acute intracranial findings.
[2022-10-10] MEDS: sodium chloride 0.9% 500 ML 999 ML IV (08:52)
[2022-10-10] MEDS: diphenhydrAMINE 50 mg/mL SDV 1mL 25 MG IVP (08:54)
[2022-10-10] MEDS: dexamethasone 10 mg/mL INJ IVP (08:55)
[2022-10-10] MEDS: ketorolac 30 mg/mL INJ IVP (08:57)
[2022-10-10] MEDS: metoclopramide 5 mg/mL SDV 2 mL 10 MG IVP (08:59)
[2022-10-10 09:00] VITALS: BP 124/84; PULSE 77; RESP 16; O2SAT 97
== END 2022-10-10 09:42 | disposition home or self-care (01) ==
PROVIDERS: Emergency Provider Physician Assistant; PCP Family Medicine
DX: G43.009 Migraine without aura, not intractable, without status migrainosus (principal); F17.210 Nicotine dependence, cigarettes, uncomplicated
CPT/HCPCS: 70450; 96361; 96374; 96375; 99285; J1100; J1200; J1885; J2765; J7040

== ENCOUNTER 2022-11-26 22:42 | Emergency (ER) | payer SELFPAY ==
[2022-11-26 22:43] VITALS: BP 114/77; PULSE 74; RESP 18; TEMP 36.6; O2SAT 94
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
[2022-11-27] MEDS: ondansetron 2 mg/ML SDV 2 mL 4 MG IVP (00:02)
[2022-11-27] MEDS: sodium chloride 0.9% 1,000 ML 999 ML IV (00:02)
[2022-11-27] MEDS: morphine 4 mg/mL SDV 1 mL IVP (00:03)
[2022-11-27] MEDS: tetanus-dipt-pertussis 0.5 mL SDV IM (00:06)
[2022-11-27 00:17] LABS: Basophils # 0.1 10^3/uL (0.0-0.1); Basophils % 2.1 %; Eosinophils # 0.1 10^3/uL (0.0-0.8); Eosinophils % 2.8 %; Hematocrit 43.6 % (42.0-52.0); Hemoglobin 15.2 g/dL (11.7-16.6); Lymphocytes # 1.3 10^3/uL (0.8-4.8); Lymphocytes % 30.2 %; Mean Corpuscular HGB Conc 34.9 g/dL (30.0-36.0); Mean Corpuscular Volume 94.8 fl (80-94); Mean Platelet Volume 10.4 fL (7.4-10.4); Monocytes # 0.5 10^3/uL (0.2-0.9); Monocytes % 11.1 %; Neutrophils # 2.32 10^3/uL (1.8-7.7); Neutrophils % 53.3 %; Nucleated Red Blood Cells % 0 %; Platelet Count 161 10^3/cmm (130-400); Red Cell Distribution Width 13.5 % (12.1-15.1); White Blood Count 4.3 10^3/uL (4.0-10.0)
[2022-11-27 00:45] LABS: Alanine Aminotransferase 18 U/L (0-41); Albumin Level 4.6 g/dL (3.5-5.2); Alkaline Phosphatase 49 U/L (40-130); Anion Gap 14.5 (5-19); Aspartate Amino Transferase 32 U/L (0-40); Blood Urea Nitrogen 10 mg/dL (6-20); Calcium 8.8 mg/dL (8.5-10.5); Carbon Dioxide 29 mmol/L (22-29); Chloride 98 mmol/L (98-107); Globulin 2.6 g/dL (1.3-4.6); Glomerular Filtration Rate 107.1 mL/min (90-130); Glucose 108 mg/dL (65-115); Osmolality Calculated 286 mOsm/kg (285-295); Potassium 3.5 mmol/L (3.5-5.1); Sodium 138 mmol/L (136-145); Total Bilirubin 0.3 mg/dL (0.15-1.2); Total Protein 7.2 g/dL (6.6-8.7)
[2022-11-27 01:10] LABS: Alcohol Level 343 mg/dL (0-10)
[2022-11-27] MEDS: oxyCODONE-APAP 5-325 mg Tablet 1 TAB PO (01:24)
--- NOTE | 2022-11-27 03:32 | PC.NURSE ---
Per Providers order pt sent home with [place] 7.5/325
[2022-11-27 03:37] VITALS: BP 123/84; PULSE 86; RESP 18; O2SAT 96
== END 2022-11-27 03:38 | disposition home or self-care (01) ==
PROVIDERS: Emergency Provider Physician Assistant; PCP Family Medicine
DX: S22.42XA Multiple fractures of ribs, left side, initial encounter for closed fracture (principal); F10.920 Alcohol use, unspecified with intoxication, uncomplicated; S01.81XA Laceration without foreign body of other part of head, initial encounter; W17.89XA Other fall from one level to another, initial encounter; F17.210 Nicotine dependence, cigarettes, uncomplicated; Z23 Encounter for immunization
CPT/HCPCS: 12013; 70450; 70486; 71101; 80053; 80307; 85025; 90471; 90715; 96361; 96374; 96375; 99285; J2270; J2405; J3411; J7030

== ENCOUNTER 2023-06-09 01:05 | Emergency (ER) | payer SELFPAY ==
[2023-06-09 01:22] VITALS: BP 132/90; PULSE 75; TEMP 36.5; O2SAT 94
--- NOTE | 2023-06-09 01:47 | ECG_ITS ---
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 Measurements Intervals [place] Rate: 70 P: 39 OK: 187 QRS: 31 QRSD: 118 T: 41 QT: 390 QTc: 421 Interpretive Statements SINUS RHYTHM POSSIBLE LATERAL MYOCARDIAL INFARCTION , OF INDETERMINATE AGE [30 ms Q WAVE IN I/aVL/V5/V6] Compared to ECG 02/18/2019 11:21:11 Myocardial infarct finding now present Electronically Signed On 06-10-2023 8:32:35 CDT by Mario Gregg M.D. [email or web address]
[2023-06-09 01:56] LABS: Basophils # 0.1 10^3/uL (0.0-0.1); Basophils % 1.9 %; Eosinophils # 0.1 10^3/uL (0.0-0.8); Eosinophils % 2.2 %; Hematocrit 44.9 % (42.0-52.0); Hemoglobin 15.4 g/dL (11.7-16.6); Lymphocytes # 3.3 10^3/uL (0.8-4.8); Lymphocytes % 51.6 %; Mean Corpuscular HGB Conc 34.3 g/dL (30.0-36.0); Mean Corpuscular Hemoglobin 32.1 pg (28.0-34.0); Mean Corpuscular Volume 93.5 fl (80-94); Mean Platelet Volume 9.9 fL (7.4-10.4); Monocytes # 0.5 10^3/uL (0.2-0.9); Neutrophils # 2.36 10^3/uL (1.8-7.7); Nucleated Red Blood Cells % 0 %; Platelet Count 245 10^3/cmm (130-400); Red Cell Distribution Width 12.9 % (12.1-15.1); White Blood Count 6.4 10^3/uL (4.0-10.0)
[2023-06-09] MEDS: ketorolac 60 mg/2 mL INJ IM (02:00)
--- NOTE | 2023-06-09 02:11 | ED_ITS ---
Documented by User: HAJA Verdugo 06/09/23 03:19 HPI - Headache General: Chief Complaint: Headache Stated Complaint: wants detox Time Seen by Provider: 06/09/23 01:20 History of Present Illness: Lucio James is a 43-year-old man that presents to the emergency department with complaints of intoxication and headache. Patient states is a chronic alcoholic and this evening he tried to check himself into rehab but was referred here instead. Patient is alert and oriented to his person place and situation Associated symptoms: Deny chest pain, confusion, fever(s), malaise, nausea, rash or vomiting Review of Systems General: Reports: 10 or more systems reviewed and unremarkable except in HPI and below Const: Denies: fever(s), chills, change in appetite, change in weight, fatigue or malaise Eyes: Denies: change in vision, eye discomfort, eye discharge or eye redness ENMT: Denies: throat pain, enlarged tonsils, odynophagia, hoarseness, ear or mastoid pain, ear discharge, change in hearing, tinnitus, nasal discharge, nasal congestion, post nasal drip or sinus pain Card: Denies: chest pain, palpitations, irregular heart rhythm, edema, dyspnea on exertion, orthopnea or leg pain with exertion Resp: Denies: dyspnea, productive cough, non-productive cough, wheezing, stridor or chest congestion GI: Denies: abdominal pain, nausea, vomiting, dysphagia, diarrhea, constipation, bloating, GI cramping or hematochezia : Denies: flank pain, dysuria, urinary frequency, urinary urgency, urinary hesitancy, oliguria or hematuria Musc: Denies: neck pain, back pain, extremity pain, joint pain, joint swelling, joint redness, joint warmth or muscle weakness Skin/Breast: Denies: rash, pruritus, erythema, photosensitivity or new lesions Neuro: Denies: headache(s), numbness in extremities, weakness in extremities, sensory changes, lack of coordination, difficulty walking, frequent falls, dizziness, confusion, Slurred speech present, difficulty communicating thoughts, seizure-like activity or involuntary movements Endo: Denies: polyuria, polydipsia or tired all the time Reymundo/Lymph: Denies: easy bruising or easy bleeding PFS ED PFSH: Medical History Abdominal pain Alcohol dependence Bleeding per rectum Esophagitis Gastritis and duodenitis Hemoperitoneum Hx of fracture of hip left hip/femur Postoperative hematoma Condition is stable Psychiatric care Family History Denies family history of Anesthesia complication Social History Smoking and tobacco status: current every day smoker cigarettes Packs smoked per day: 0.5 Years cigarettes smoked: 15 Quit status (tobacco): not considering quitting Second hand smoke exposure: No Alcohol intake: former Year of sobriety/quit date alcohol: 2021 Physical Exam Const: COMMON NORMALS: no acute distress, patient oriented x3 and alert GENERAL APPEARANCE: cooperative ORIENTATION/CONSCIOUSNESS: Yes awake, Yes oriented to person, Yes oriented to place and Yes oriented to time HENMT: COMMON NORMALS: normocephalic and atraumatic HEAD & SCALP: normocephalic and atraumatic FACE & SINUS: normal facial exam MOUTH: Normal oral and palatal mucosa present THROAT: posterior oropharynx normal Eye: COMMON NORMALS: Equal, round and reactive pupils present, EOMs intact bilaterally, conjunctivae normal and no scleral icterus GENERAL EYE: appearance normal, both eyes and all related structures ALIGNMENT: Yes alignment normal PERIORBITAL: periorbital findings normal CONJUNCTIVA: Yes conjunctivae normal PUPIL: Yes Equal, round and reactive pupils present Neck/C-Spine: COMMON NORMALS: full ROM GENERAL: Yes normal visual inspectio n Lymph: LYMPHATIC: no lymphadenopathy noted Chest: COMMONS NORMALS: normal inspection of the chest Breast/axilla inspection: Yes no chest deformity, asymmetry, normal contours, no nodules, masses, tenderness Resp: COMMON NORMALS: normal respiratory effort, No retractions, No use of accessory muscles and clear to auscultation bilaterally EFFORT & INSPECTION: Yes able to speak in complete sentences and Yes symmetric chest movement AUSCULTATION: clear to auscultation bilaterally Cardio: COMMON NORMALS: regular rate, regular rhythm and Peripheral pulses 2+ throughout RATE: regular rate RHYTHM: regular rhythm PERIPHERAL PULSES: Peripheral pulses 2+ throughout GI: COMMON NORMALS: Normal to inspection, nondistended, normoactive bowel sounds present, Soft to palpation, non-tender and No hepatosplenomegaly present INSPECTION: Yes normal to inspection AUSCULTATION: Yes normoactive bowel sounds PALPATION: Yes Soft to palpation and Yes No hepatosplenomegaly present RECTAL EXAM: Yes deferred Extremity: COMMON NORMALS: normal to inspection GENERAL: Yes normal exam except as noted Neuro: COMMON NORMALS: patient oriented x3 SENSORIUM/ORIENTATION: Yes alert, Yes oriented to person, Yes oriented to place and Yes oriented to time CRANIAL NERVES: Yes CN normal except as noted Psych: COMMON NORMALS: mental status grossly normal, Normal thought process present, cooperative, activity/motor behavior normal, denies homicidal ideation and denies suicidal ideation THOUGHT PROCESS: Normal thought process present Skin: COMMON NORMALS: no rashes or lesions noted, no wounds and turgor normal GENERAL SKIN EXAM: no rashes or lesions noted and turgor normal Course Vital Signs: Vital signs: Vital Signs Temperature 97.7 F 06/09/23 01:22 Pulse Rate 75 06/09/23 01:22 Respiratory Rate 14 06/09/23 06:14 Blood Pressure 132/90 06/09/23 01:22 Pulse Oximetry 94 06/09/23 01:22 Oxygen Delivery Me thod Room Air 06/09/23 04:17 MDM - Headache Medical Decision Making Patient was evaluated in the emergency department for headache and intoxication. Patient is seeking rehab. Laboratory studies ordered: CBC, CMP, alcohol, acetaminophen, salicylate, ur inalysis, urine drug screen, COVID and TSH EKG completed and reveals sinus rhythm with a ventricular rate of 70 beats a minute and QTc 410. EKG reads possible lateral infarct however I do not see abn ormal ST elevation, T wave inversion or ectopy. Laboratory studies reveal no leukocytosis, anemias, electrolyte disturbance. Patient does have a blood alcohol of 384 and positive for marijuana. Lab Data 06/09/23 01:43 06/09/23 01:43 Laboratory Results WBC 6.4 10^3/uL (4.0-10.0) 06/09/23 01:43 RBC 4.80 10^6/uL (4.1-5.3) 06/09/23 01:43 Hgb 15.4 g/dL (11.7-16.6) 06/09/23 01:43 Hct 44.9 % (42.0-52.0) 06/09/23 01:43 MCV 93.5 fl (80-94) 06/09/23 01:43 MCH 32.1 pg (28.0-34.0) 06/09/23 01:43 MCHC 34.3 g/dL (30.0-36.0) 06/09/23 01:43 RDW 12.9 % (12.1-15.1) 06/09/23 01:43 Plt Count 245 10^3/cmm (130-400) 06/09/23 01:43 MPV 9.9 fL (7.4-10.4) 06/09/23 01:43 Neut % (Auto) 37.0 % 06/09/23 01:43 Lymph % (Auto) 51.6 % 06/09/23 01:43 [place] % (Auto) 7.0 % 06/09/23 01:43 Eos % (Auto) 2.2 % 06/09/23 01:43 Baso % (Auto) 1.9 % 06/09/23 01:43 Neut # (Auto) 2.36 10^3/uL (1.8-7.7) 06/09/23 01:43 Lymph # (Auto) 3.3 10^3/uL (0.8-4.8) 06/09/23 01:43 [place] # (Auto) 0.5 10^3/uL (0.2-0.9) 06/09/23 01:43 Eos # (Auto) 0.1 10^3/uL (0.0-0.8) 06/09/23 01:43 Baso # (Auto) 0.1 10^3/uL (0.0-0.1) 06/09/23 01:43 Nucleated RBC % (auto) 0 % 06/09/23 01:43 Nucleated RBCs # 0.0 /100WBC 06/09/23 01:43 Sodium 143 mmol/L (136-145) 06/09/23 01:43 Potassium 3.9 mmol/L (3.5-5.1) 06/09/23 01:43 Chloride 105 mmol/L (98-107) 06/09/23 01:43 Carbon Dioxide 26 mmol/L (22-29) 06/09/23 01:43 Anion Gap 15.9 (5-19) 06/09/23 01:43 BUN 11 mg/dL (6-20) 06/09/23 01:43 Creatinine 0.9 mg/dL (0.7-1.2) 06/09/23 01:43 GFR Calculation 93.0 mL/min (90-130) 06/09/23 01:43 Glucose 101 mg/dL (65-115) 06/09/23 01:43 Calculated Osmolality 296 mOsm/kg (285-295) H 06/09/23 01:43 Calcium 8.6 mg/dL (8.5-10.5) 06/09/23 01:43 Total Bilirubin 0.2 mg/dL (0.15-1.2) 06/09/23 01:43 AST 32 U/L (0-40) 06/09/23 01:43 ALT 19 U/L (0-41) 06/09/23 01:43 Alkaline Phosphatase 52 U/L (40-130) 06/09/23 01:43 Total Protein 7.2 g/dL (6.6-8.7) 06/09/23 01:43 Albumin 4.3 g/dL (3.5-5.2) 06/09/23 01:43 Globulin 2.9 g/dL (1.3-4.6) 06/09/23 01:43 TSH 3.55 uIU/mL (0.27-4.20) 06/09/23 01:43 Urine Color Yellow (Yellow) 06/09/23 01:51 Urine Appearance Clear (CLEAR) 06/09/23 01:51 Urine pH 5 (5-7) 06/09/23 01:51 Ur Specific [place] 1.005 (1.005-1.030) 06/09/23 01:51 Urine Protein Neg (Negative) 06/09/23 01:51 Urine Glucose (UA) Norm (Normal) 06/09/23 01:51 Urine Ketones Negative (Negative) 06/09/23 01:51 Urine Blood Neg (Negative) 06/09/23 01:51 Urine Nitrate Negative (Negative) 06/09/23 01:51 Urine Bilirubin Neg (Negative) 06/09/23 01:51 Urine Urobilinogen Norm mg/dL (Negative) 06/09/23 01:51 Ur Leukocyte Esterase Negative (Negative) 06/09/23 01:51 Salicylates < 0.3 mg/dL (3-10) L 06/09/23 01:43 Urine Opiates Screen Negative ng/mL (Negative) 06/09/23 01:51 Acetaminophen < 5.0 ug/mL (10-30) L 06/09/23 01:43 Ur Barbiturates Screen Negative ng/mL (Negative) 06/09/23 01:51 Ur Phencyclidine Scrn Negative ng/mL (Negative) 06/09/23 01:51 Ur Amphetamines Screen Negative ng/mL (Negative) 06/09/23 01:51 U Benzodiazepines Scrn Negative ng/mL (Negative) 06/09/23 01:51 Urine Cocaine Screen Negative ng/mL (Negative) 06/09/23 01:51 U Marijuana (THC) Screen Positive ng/mL (Negative) H 06/09/23 01:51 Ethyl Alcohol 384 mg/dL (0-10) H* 06/09/23 01:43 SARS-CoV-2 Ag (Rapid) negative (Negative) 06/09/23 02:00 Discharge Plan Discharge Patient Disposition: Home Clinical Impression: Headache, Alcohol intoxication Condition: Stable Prescriptions: No Action escitalopram oxalate 20 mg tablet 20 mg PO QAM Qty: 30 0RF Rx Instructions: Take one tablet by mouth every morning gabapentin 300 mg capsule See Rx Instructions PO .COMPLEX Qty: 90 0RF Rx Instructions: Take one capsule by mouth every afternoon and two capsules in the evening naltrexone 50 mg tablet 50 mg PO .q am Qty: 30 0RF Rx Instructions: Take one tablet by mouth every morning multivitamin Tablet 1 tab PO DAILY Tylenol Ex Str Rapid Release 500 mg Tablet 1,000 mg PO Q6H PRN (Reason: Pain) ibuprofen 800 mg tablet 800 mg PO Q8H PRN (Reason: pain) Qty: 30 0RF Discharge Orders: Discharge ED (Routine); Ordered 06/09/23 Ordered By: Kaushik Kraft Referrals: Beata Stallings DO [Primary Care Provider] - Patient Instructions: Alcohol Intoxication (ED), Acute Headache (ED) Activity Restrictions/Additional Instructions: If inpatient rehabilitation is what you desire, we urged to contact mary severino on Saturday morning, as the hospital does not do inpatient detoxification/rehabilitation. Return for any problems. Coding Level of Care Code ED District Associate Judge for Chg Fwd Documented by User: Kaushik Kraft DO 06/09/23 19:07 HPI - Headache General: Chief Complaint: Headache Stated Complaint: wants detox Time Seen by Provider: 06/09/23 01:20 PFSH ED PFSH: Medical History Abdominal pain Alcohol dependence Bleeding per rectum Esophagitis Gastritis and duodenitis Hemoperitoneum Hx of fracture of hip left hip/femur Postoperative hematoma Condition is stable Psychiatric care Family History Denies family history of Anesthesia complication Social History Smoking and tobacco status: current every day smoker cigarettes Packs smoked per day: 0.5 Years cigarettes smoked: 15 Quit status (tobacco): not considering quitting Second hand smoke exposure: No Alcohol intake: former Year of sobriety/quit date alcohol: 2021 Course Vital Signs: Vital signs: Vital Signs Temperature 97.7 F 06/09/23 01:22 Pulse Rate 75 06/09/23 01:22 Respiratory Rate 14 06/09/23 06:14 Blood Pressure 132/90 06/09/23 01:22 Pulse Oximetry 94 06/09/23 01:22 Oxygen Delivery Me thod Room Air 06/09/23 04:17 MDM - Headache Medical Decision Making Patient was evaluated in the emergency department for headache and intoxication. Patient is seeking rehab. Laboratory studies ordered: CBC, CMP, alcohol, acetaminophen, salicylate, urinalysis, urine drug screen, COVID and TSH EKG completed and reveals sinus rhythm with a ventricular rate of 70 beats a minute and QTc 410. EKG reads possible lateral infarct however I do not see abnormal ST elevation, T wave inversion or ectopy. Laboratory studies reveal no leukocytosis, anemias, electrolyte disturbance. Patient does have a blood alcohol of 384 and positive for marijuana. This patient was originally seen by AARON Marks.? I agree with her history, evaluation, and treatment. Patient is resting comfortably. He is not suicidal or homicidal. He is referred to outpatient rehab for [facility] upon waking and discharge. We do not do inpatient detoxification at this facility. Medically, he is stable. Lab Data 06/09/23 01:43 06/09/23 01:43 Laboratory Results WBC 6.4 10^3/uL (4.0-10.0) 06/09/23 01:43 RBC 4.80 10^6/uL (4.1-5.3) 06/09/23 01:43 Hgb 15.4 g/dL (11.7-16.6) 06/09/23 01:43 Hct 44.9 % (42.0-52.0) 06/09/23 01:43 MCV 93.5 fl (80-94) 06/09/23 01:43 MCH 32.1 pg (28.0-34.0) 06/09/23 01:43 MCHC 34.3 g/dL (30.0-36.0) 06/09/23 01:43 RDW 12.9 % (12.1-15.1) 06/09/23 01:43 Plt Count 245 10^3/cmm (130-400) 06/09/23 01:43 MPV 9.9 fL (7.4-10.4) 06/09/23 01:43 Neut % (Auto) 37.0 % 06/09/23 01:43 Lymph % (Auto) 51.6 % 06/09/23 01:43 [place] % (Auto) 7.0 % 06/09/23 01:43 Eos % (Auto) 2.2 % 06/09/23 01:43 Baso % (Auto) 1.9 % 06/09/23 01:43 Neut # (Auto) 2.36 10^3/uL (1.8-7.7) 06/09/23 01:43 Lymph # (Auto) 3.3 10^3/uL (0.8-4.8) 06/09/23 01:43 [place] # (Auto) 0.5 10^3/uL (0.2-0.9) 06/09/23 01:43 Eos # (Auto) 0.1 10^3/uL (0.0-0.8) 06/09/23 01:43 Baso # (Auto) 0.1 10^3/uL (0.0-0.1) 06/09/23 01:43 Nucleated RBC % (auto) 0 % 06/09/23 01:43 Nucleated RBCs # 0.0 /100WBC 06/09/23 01:43 Sodium 143 mmol/L (136-145) 06/09/23 01:43 Potassium 3.9 mmol/L (3.5-5.1) 06/09/23 01:43 Chloride 105 mmol/L (98-107) 06/09/23 01:43 Carbon Dioxide 26 mmol/L (22-29) 06/09/23 01:43 Anion Gap 15.9 (5-19) 06/09/23 01:43 BUN 11 mg/dL (6-20) 06/09/23 01:43 Creatinine 0.9 mg/dL (0.7-1.2) 06/09/23 01:43 GFR Calculation 93.0 mL/min (90-130) 06/09/23 01:43 Glucose 101 mg/dL (65-115) 06/09/23 01:43 Calculated Osmolality 296 mOsm/kg (285-295) H 06/09/23 01:43 Calcium 8.6 mg/dL (8.5-10.5) 06/09/23 01:43 Total Bilirubin 0.2 mg/dL (0.15-1.2) 06/09/23 01:43 AST 32 U/L (0-40) 06/09/23 01:43 ALT 19 U/L (0-41) 06/09/23 01:43 Alkaline Phosphatase 52 U/L (40-130) 06/09/23 01:43 Total Protein 7.2 g/dL (6.6-8.7) 06/09/23 01:43 Albumin 4.3 g/dL (3.5-5.2) 06/09/23 01:43 Globulin 2.9 g/dL (1.3-4.6) 06/09/23 01:43 TSH 3.55 uIU/mL (0.27-4.20) 06/09/23 01:43 Urine Color Yellow (Yellow) 06/09/23 01:51 Urine Appearance Clear (CLEAR) 06/09/23 01:51 Urine pH 5 (5-7) 06/09/23 01:51 Ur Specific [place] 1.005 (1.005-1.030) 06/09/23 01:51 Urine Protein Neg (Negative) 06/09/23 01:51 Urine Glucose (UA) Norm (Normal) 06/09/23 01:51 Urine Ketones Negative (Negative) 06/09/23 01:51 Urine Blood Neg (Negative) 06/09/23 01:51 Urine Nitrate Negative (Negative) 06/09/23 01:51 Urine Bilirubin Neg (Negative) 06/09/23 01:51 Urine Urobilinogen Norm mg/dL (Negative) 06/09/23 01:51 Ur Leukocyte Esterase Negative (Negative) 06/09/23 01:51 Salicylates < 0.3 mg/dL (3-10) L 06/09/23 01:43 Urine Opiates Screen Negative ng/mL (Negative) 06/09/23 01:51 Acetaminophen < 5.0 ug/mL (10-30) L 06/09/23 01:43 Ur Barbiturates Screen Negative ng/mL (Negative) 06/09/23 01:51 Ur Phencyclidine Scrn Negative ng/mL (Negative) 06/09/23 01:51 Ur Amphetamines Screen Negative ng/mL (Negative) 06/09/23 01:51 U Benzodiazepines Scrn Negative ng/mL (Negative) 06/09/23 01:51 Urine Cocaine Screen Negative ng/mL (Negative) 06/09/23 01:51 U Marijuana (THC) Screen Positive ng/mL (Negative) H 06/09/23 01:51 Ethyl Alcohol 384 mg/dL (0-10) H* 06/09/23 01:43 SARS-CoV-2 Ag (Rapid) negative (Negative) 06/09/23 02:00 Discharge Plan Discharge Patient Disposition: Home Clinical Impression: Headache, Alcohol intoxication Condition: Stable Prescriptions: No Action escitalopram oxalate 20 mg tablet 20 mg PO QAM Qty: 30 0RF Rx Instructions: Take one tablet by mouth every morning gabapentin 300 mg capsule See Rx Instructions PO .COMPLEX Qty: 90 0RF Rx Instructions: Take one capsule by mouth every afternoon and two capsules in the evening naltrexone 50 mg tablet 50 mg PO .q am Qty: 30 0RF Rx Instructions: Take one tablet by mouth every morning multivitamin Tablet 1 tab PO DAILY Tylenol Ex Str Rapid Release 500 mg Tablet 1,000 mg PO Q6H PRN (Reason: Pain) ibuprofen 800 mg tablet 800 mg PO Q8H PRN (Reason: pain) Qty: 30 0RF Discharge Orders: Discharge ED (Routine); Ordered 06/09/23 Ordered By: Kaushik Kraft Referrals: Beata Stallings DO [Primary Care Provider] - Patient Instructions: Alcohol Intoxication (ED), Acute Headache (ED) Activity Restrictions/Additional Instructions: If inpatient rehabilitation is what you desire, we urged to contact mary severino on Saturday, as the hospital does not do inpatient detoxification/rehabilitation. Return for any problems. Coding Level of Care Code ED District Associate Judge for Cedric Fischer
[2023-06-09 02:25] LABS: Alanine Aminotransferase 19 U/L (0-41); Albumin Level 4.3 g/dL (3.5-5.2); Alkaline Phosphatase 52 U/L (40-130); Anion Gap 15.9 (5-19); Aspartate Amino Transferase 32 U/L (0-40); Blood Urea Nitrogen 11 mg/dL (6-20); Calcium 8.6 mg/dL (8.5-10.5); Carbon Dioxide 26 mmol/L (22-29); Chloride 105 mmol/L (98-107); Creatinine Clr Calc Pharmacy 131.4524; Globulin 2.9 g/dL (1.3-4.6); Glucose 101 mg/dL (65-115); Osmolality Calculated 296 mOsm/kg (285-295); Potassium 3.9 mmol/L (3.5-5.1); Sodium 143 mmol/L (136-145); Thyroid Stimulating Hormone 3.55 uIU/mL (0.27-4.20); Total Bilirubin 0.2 mg/dL (0.15-1.2); Total Protein 7.2 g/dL (6.6-8.7)
[2023-06-09 02:28] LABS: Acetaminophen < 5.0 ug/mL (10-30); Salicylate < 0.3 mg/dL (3-10)
[2023-06-09 02:29] LABS: Alcohol Level 384 mg/dL (0-10)
[2023-06-09 02:36] LABS: Amphetamines Screen Urine Negative (Negative); Barbiturates Screen Urine Negative (Negative); Benzodiazepines Screen Urine Negative (Negative); Cocaine Screen Urine Negative (Negative); Opiate Screen Urine Negative (Negative); PCP Screen Urine Negative (Negative); THC Screen Urine Positive (Negative)
[2023-06-09 02:49] LABS: SARS Covid-2 Antigen negative (Negative)
[2023-06-09 02:59] LABS: Add Urine Microscopic? NO; Charge for UA Resulting for Rev
[2023-06-09 03:04] LABS: Bilirubin Urine Neg (Negative); Blood Urine Neg (Negative); Glucose Urine UA Norm (Normal); Ketones Urine Negative (Negative); Leukocyte Esterase Urine Negative (Negative); Nitrate Urine Negative (Negative); Protein Urine Neg (Negative); Specific Gravity, Urine 1.005 (1.005-1.030); Urine Appearance Clear (CLEAR); Urine Color Yellow (Yellow); Urobilinogen Urine Norm (Negative); pH Urine 5 (5-7)
[2023-06-09 04:17] VITALS: RESP 16
[2023-06-09 06:14] VITALS: RESP 14
== END 2023-06-09 06:15 | disposition home or self-care (01) ==
PROVIDERS: Emergency Provider Nurse Practitioner; PCP Family Medicine
DX: R51.9 Headache, unspecified (principal); F10.129 Alcohol abuse with intoxication, unspecified; Y90.8 Blood alcohol level of 240 mg/100 ml or more; Z20.822 Contact with and (suspected) exposure to COVID-19; F17.210 Nicotine dependence, cigarettes, uncomplicated
CPT/HCPCS: 36415; 80053; 80306; 80307; 81003; 84443; 85025; 87426; 93005; 96372; 99284; J1885

== ENCOUNTER 2023-09-08 23:38 | Emergency (ER) | payer MEDICAID, SELFPAY ==
[2023-09-08 23:45] VITALS: BP 127/104; PULSE 93; RESP 18; TEMP 36.7; O2SAT 96; BMI 23.7
--- NOTE | 2023-09-09 00:12 | XRR_ITS ---
PROCEDURE INFORMATION: Exam: XR Left Femur Exam date and time: 09/09/2023 12:16 AM Age: 43 years old Clinical indication: Prior surgery; Surgery date: 6+ months; Surgery type: Femoral filiberto. Pelvic fixation; Patient HX: C/O left thigh pain. No recent injury. ; Additional info: Thigh pain, HX surgery TECHNIQUE: Imaging protocol: Radiologic exam of the left femur. Views: 2 views. COMPARISON: No relevant prior studies available. FINDINGS: Bones/joints: There has been prior ORIF of the femur with a healed mid diaphyseal fracture. Exuberant bony excrescences projecting medially from the fracture site, potentially symptomatic from impingement on adjacent soft tissue structures. Minimal degenerative change noted at the knee. Normal appearance of the hip. Prior fixation of the pubis noted. Soft tissues: See Bones/joints finding. XR/XR femur LT min 2V* [id number] IMPRESSION: Exuberant bony excrescences from the medial aspect of the healed femoral fracture could be symptomatic. No acute bony abnormality.
[2023-09-09] MEDS: metoclopramide 5 mg/mL SDV 2 mL 10 MG IVP (00:46)
[2023-09-09] MEDS: dexamethasone 10 mg/mL INJ IVP (00:48)
[2023-09-09] MEDS: ketorolac 30 mg/mL INJ IVP (00:51)
[2023-09-09] MEDS: morphine 4 mg/mL SDV 1 mL IVP (00:52)
[2023-09-09 00:53] VITALS: BP 122/89; PULSE 69; RESP 18; O2SAT 96
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
[2023-09-09 01:27] VITALS: BP 105/73; PULSE 70; RESP 16; O2SAT 96
== END 2023-09-09 01:26 | disposition home or self-care (01) ==
PROVIDERS: Emergency Provider Emergency Medicine; PCP Family Medicine
DX: G43.909 Migraine, unspecified, not intractable, without status migrainosus (principal); M79.652 Pain in left thigh; F17.210 Nicotine dependence, cigarettes, uncomplicated
CPT/HCPCS: 73552; 96374; 96375; 99284; J1100; J1885; J2270; J2765

== ENCOUNTER → 2023-11-28 15:27 | Outpatient (BNVA) | payer BC, SELFPAY | PROVIDERS: PCP Family Medicine; Visit Provider Nurse Practitioner Psychiatric/Mental Health | DX: Z79.899 Other long term (current) drug therapy (principal); Z03.89 Encounter for observation for other suspected diseases and conditions ruled out; F41.1 Generalized anxiety disorder; F33.1 Major depressive disorder, recurrent, moderate; F10.20 Alcohol dependence, uncomplicated | CPT/HCPCS: 80053; 80061; 83036 ==

== ENCOUNTER 2024-03-15 23:28 | Emergency (ER) | payer BC, MEDICAID, SELFPAY ==
[2024-03-15 23:29] VITALS: BP 147/97; PULSE 101; RESP 18; TEMP 36.6; O2SAT 95; BMI 30.3
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
[2024-03-16] MEDS: sodium chloride 0.9% 1,000 ML 999 ML IV (00:08)
[2024-03-16] MEDS: metoclopramide 5 mg/mL SDV 2 mL 10 MG IVP (00:09)
[2024-03-16] MEDS: diphenhydrAMINE 50 mg/mL SDV 1mL IVP (00:09)
[2024-03-16] MEDS: ketorolac 30 mg/mL INJ 15 MG IVP (00:09)
[2024-03-16] MEDS: dexamethasone 10 mg/mL INJ IVP (00:09)
[2024-03-16 00:17] VITALS: PULSE 87; RESP 18; O2SAT 93
[2024-03-16 00:25] LABS: Basophils # 0.1 10^3/uL (0.0-0.1); Basophils % 0.9 %; Eosinophils # 0.2 10^3/uL (0.0-0.8); Eosinophils % 1.7 %; Hematocrit 48.4 % (37-53); Lymphocytes # 2.7 10^3/uL (0.8-4.8); Mean Corpuscular HGB Conc 34.5 g/dL (30-55); Mean Corpuscular Hemoglobin 30.9 pg (27-33); Mean Corpuscular Volume 89.6 fl (82-101); Mean Platelet Volume 10.4 fL (7.4-10.4); Monocytes # 0.5 10^3/uL (0.2-0.9); Monocytes % 5.2 %; Neutrophils # 6.12 10^3/uL (1.8-7.7); Neutrophils % 63.8 %; Nucleated Red Blood Cells % 0 %; Platelet Count 230 10^3/cmm (157-399); Red Cell Distribution Width 13.7 % (12.1-15.1)
[2024-03-16 01:24] VITALS: BP 148/72; PULSE 79; RESP 16; O2SAT 97
--- NOTE | 2024-03-24 11:00 | DCPLANNER ---
Message sent to general surgery for follow up
== END 2024-03-16 01:26 | disposition home or self-care (01) ==
PROVIDERS: Emergency Provider Nurse Practitioner Family; PCP Family Medicine
DX: G43.909 Migraine, unspecified, not intractable, without status migrainosus (principal); F10.20 Alcohol dependence, uncomplicated; K92.1 Melena; F17.210 Nicotine dependence, cigarettes, uncomplicated
CPT/HCPCS: 85025; 96361; 96374; 96375; 99284; J1100; J1200; J1885; J2765; J7030

== ENCOUNTER 2024-03-21 02:51 | Emergency (ER) | payer BC, MEDICAID, SELFPAY ==
[2024-03-21 03:00] VITALS: BP 104/70; PULSE 94; RESP 18; TEMP 36.8; O2SAT 98; BMI 30.3
[2024-03-21] MEDS: ketorolac 60 mg/2 mL INJ IM (03:20)
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
[2024-03-21] MEDS: metoclopramide 5 mg/mL SDV 2 mL 10 MG IVP (03:21)
[2024-03-21] MEDS: diphenhydrAMINE 50 mg/mL SDV 1mL IVP (03:21)
[2024-03-21 03:45] LABS: Basophils # 0.1 10^3/uL (0.0-0.1); Basophils % 0.9 %; Eosinophils # 0.2 10^3/uL (0.0-0.8); Eosinophils % 2.5 %; Hematocrit 48.7 % (37-53); Lymphocytes % 46.3 %; Mean Corpuscular HGB Conc 34.1 g/dL (30-55); Mean Corpuscular Volume 90.9 fl (82-101); Mean Platelet Volume 10.3 fL (7.4-10.4); Monocytes # 0.5 10^3/uL (0.2-0.9); Monocytes % 6.9 %; Neutrophils % 42.9 %; Nucleated Red Blood Cells % 0 %; Platelet Count 193 10^3/cmm (157-399); Red Blood Count 5.36 10^6/uL (3.85-5.65); Red Cell Distribution Width 13.5 % (12.1-15.1); White Blood Count 6.52 10^3/uL (3.29-11.43)
[2024-03-21 04:06] LABS: Alanine Aminotransferase 43 U/L (0-41); Albumin Level 4.4 g/dL (3.5-5.2); Alkaline Phosphatase 55 U/L (40-130); Anion Gap 15.7 (5-19); Aspartate Amino Transferase 35 U/L (0-40); Blood Urea Nitrogen 10 mg/dL (6-20); Calcium 8.8 mg/dL (8.5-10.5); Carbon Dioxide 24 mmol/L (22-29); Chloride 107 mmol/L (98-107); Creatinine Clr Calc Pharmacy 122.0514; Globulin 3.3 g/dL (1.3-4.6); Glomerular Filtration Rate 81.9 mL/min (90-130); Glucose 91 mg/dL (65-115); Lipase 97 U/L (13-60); Osmolality Calculated 295 mOsm/kg (285-295); Potassium 3.7 mmol/L (3.5-5.1); Sodium 143 mmol/L (136-145); Total Bilirubin 0.3 mg/dL (0.15-1.2); Total Protein 7.7 g/dL (6.6-8.7)
[2024-03-21 04:11] LABS: Alcohol Level 344 mg/dL (0-10)
[2024-03-21 05:10] VITALS: RESP 16
--- NOTE | 2024-03-21 05:10 | PC.NURSE ---
Patient resting at this time with eyes shut, respirations even and unlabored.
--- NOTE | 2024-03-21 05:11 | PC.NURSE ---
Per Dr Nascimento, patient to be discharged when more alert, oriented, and able to safely discharge from facility.
[2024-03-21 06:30] VITALS: RESP 16
== END 2024-03-21 07:45 | disposition home or self-care (01) ==
PROVIDERS: Emergency Provider Emergency Medicine; PCP Family Medicine
DX: G43.909 Migraine, unspecified, not intractable, without status migrainosus (principal); K92.1 Melena; F10.20 Alcohol dependence, uncomplicated; Y90.8 Blood alcohol level of 240 mg/100 ml or more; F17.210 Nicotine dependence, cigarettes, uncomplicated
CPT/HCPCS: 36415; 80053; 80307; 83690; 85025; 96372; 96374; 96375; 99284; J1200; J1885; J2765

== ENCOUNTER 2024-04-13 09:26 | Outpatient (CLI) | payer OTHER, BC, MEDICAID, SELFPAY ==
--- NOTE | 2024-04-13 09:30 | MR_ITS ---
WS: [id number] MRI LUMBAR SPINE NONCONTRAST TECHNIQUE: Sagittal T1, T2 and STIR imaging. Axial T1 and T2 imaging. CLINICAL INFORMATION: M54.16 - Radiculopathy, lumbar region COMPARISON: None. FINDINGS: Mild lumbar curve. No acute compression. Sacroiliac screw fixation. Disc osteophyte protrusion in the cervical spine on the plan coordinator imaging at C5-6 with indentation of the cervical cord and moderate central canal stenosis. Recommend further evaluation with cervical spine MRI. A few shallow disc protrusions in the mid and lower thoracic spine L1-L2: Mild facet arthropathy. Spinal canal and foramen are patent. L2-L3: Mild facet arthropathy. Mild RIGHT foraminal narrowing with a tiny RIGHT foraminal protrusion. L3-L4: Mild annular bulging eccentric to the LEFT. Slight narrowing the LEFT subarticular recess. Mod erate facet arthropathy. Mild LEFT foraminal narrowing with slight impingement on the exiting LEFT L3 nerve root. L4-L5: Shallow central and RIGHT subarticular disc protrusion impinges the traversing RIGHT L5 nerve root. Mild central canal stenosis. Mild facet arthropathy. Bilateral foraminal protrusions with moder ate bilateral foraminal narrowing. LEFT proximal perineural sleeve cyst. L5-S1: Mild disc bulge with osteophytic ridging. Mild LEFT greater than RIGHT foraminal narrowing. Mi ld facet arthropathy. Visualized pelvic bony structures: Normal. Paravertebral soft tissues: Normal. MR/MR lumbar spine wo con* [id number] IMPRESSION: 1. Mild lumbar curve. No acute compression. 2. Central and RIGHT paracentral disc protrusion L4-5 impinges the RIGHT subar ticular recess and traversing RIGHT L5 nerve root. Mild central canal stenosis. Moderate bilateral L4-5 foraminal narrowing with small foraminal protrusions. 3. Mild LEFT L3-4 foraminal narrowing. 4. Mild RIGHT L2-3 foraminal narrowing with a small RIGHT foraminal protrusion 5. Disc osteophyte protrusion in the cervical spine on the plan coordinator imaging at C5 -6 with indentation of the cervical cord and moderate central canal stenosis. R ecommend further evaluation with cervical spine MR
== END 2024-04-13 09:27 | disposition home or self-care (01) ==
LOC: RAD 09:26
PROVIDERS: PCP Family Medicine; Visit Provider Anesthesiology Pain Medicine
DX: M54.16 Radiculopathy, lumbar region (principal); M51.26 Other intervertebral disc displacement, lumbar region; M48.061 Spinal stenosis, lumbar region without neurogenic claudication; M25.78 Osteophyte, vertebrae
CPT/HCPCS: 72148

== ENCOUNTER 2024-06-16 07:43 | Emergency (ER) | payer OTHER, BC, MEDICAID, SELFPAY ==
[2024-06-16 07:45] VITALS: BP 125/77; PULSE 91; TEMP 36.6; O2SAT 94; BMI 30.3
[2024-06-16 07:58] LABS: Basophils # 0.1 10^3/uL (0.0-0.1); Basophils % 1.5 %; Eosinophils # 0.3 10^3/uL (0.0-0.8); Eosinophils % 4.7 %; Hematocrit 46.3 % (37-53); Lymphocytes # 2.5 10^3/uL (0.8-4.8); Mean Corpuscular HGB Conc 34.6 g/dL (30-55); Mean Corpuscular Hemoglobin 31.3 pg (27-33); Mean Corpuscular Volume 90.6 fl (82-101); Mean Platelet Volume 10.2 fL (7.4-10.4); Monocytes # 0.5 10^3/uL (0.2-0.9); Neutrophils # 2.54 10^3/uL (1.8-7.7); Neutrophils % 42.6 %; Nucleated Red Blood Cells % 0 %; Platelet Count 198 10^3/cmm (157-399); Red Blood Count 5.11 10^6/uL (3.85-5.65); Red Cell Distribution Width 14.3 % (12.1-15.1); White Blood Count 5.97 10^3/uL (3.29-11.43)
--- NOTE | 2024-06-16 08:01 | CT_ITS ---
WS: [id number] CT ABDOMEN AND PELVIS WITH CONTRAST HISTORY: Back pain down LEFT leg. TECHNIQUE: Imaging performed of the abdomen and pelvis with IV contrast. Single phase imaging of the abdomen. Coronal and sagittal reformats are submitted. All CT scans at [facility] use at [facility] st one of these dose optimization techniques: automated exposure control; mA and/or kV adjustment per patient size (includes targeted exams where dose is matched to clinical indication); or iterative re construction. IV CONTRAST: Omnipaque 350; 100 mL IV. Oral contrast: No DLP: 924.83 mGy.cm COMPARISON: 10/24/2021 Lower thorax: Lung bases are clear. Heart is normal size. Small hiatal hernia. Liver/biliary system: Normal size with no intrahepatic dilatation. Gallbladder: Normal size gallbladder. There is a possible stone in the dependent gallbladder. No nolberto cent inflammation. Normal bile duct. Pancreas: Normal size pancreas and pancreatic duct. No adjacent inflammation. Spleen: Normal size spleen. No mass or infarct. Adrenal glands: Normal. Right kidney: Normal. Left kidney: Normal. Aorta: Mild atherosclerosis with no aneurysm. Lymphadenopathy: None. Free fluid: None. GI tract: No obstruction. Appendix not definitely identified. No inflammatory changes or significant diverticular disease. Abdominal wall: Fat containing umbilical hernia. Pelvis: No free fluid or adenopathy. Negative urinary bladder. Bones: Prior surgical repair of the symphysis pubis. Horizontal screw through the LEFT SI joint. Prio r fixation proximal LEFT femur. Mild central and foraminal and subarticular recess encroachment at L4 -5 due to disc and facet disease. CT/CT abdomen pelvis w con* [id number] IMPRESSION: 1. No acute abdominal or pelvic abnormalities. 2. Possible stone in the dependent gallbladder. No evidence for acute cholecys titis. 3. No GI tract obstruction. 4. Postsurgical changes in the pelvis as described above. 5. Mild central, foraminal and subarticular recess stenosis at L4-5.
--- NOTE | 2024-06-16 08:01 | US_ITS ---
WS: [id number] ULTRASOUND SOFT TISSUES medial LEFT thigh. HISTORY: trauma/swelling L thigh COMPARISON: None available. TECHNIQUE: 2-D and color Doppler imaging is submitted. There is a hypoechoic mass with shadowing measuring 0.8 x 0.8 x 0.9 cm along the medial LEFT thigh. T here is no increased vascularity. This may be a small calcified hematoma. Patient has had prior traum a as a intramedullary filiberto is noted on radiographs. There is an additional hyperechoic area associated with the bruise which is probably a lipoma or resolving hematoma. US/US soft tissue/extremity [id number] IMPRESSION: 1. Hypoechoic mass with shadowing in the medial LEFT thigh measuring 0.8 x 0.8 x 0.9 cm. This is probably calcified hematoma. There is no increased vasculari ty. 2. Additional area of increased echogenicity near a bruise appears most consis tent with a lipoma.
--- NOTE | 2024-06-16 08:01 | USCV_ITS ---
Lucio James Age: 44 Gender: M : 1980 Exam Date: 06/16/2024 08:30 Ordering Phys: Jamison Delacruz DO Technologist: [place] [facility] [place]: swelling PROCEDURES: Venous duplex imaging was performed in only the left lower extremity. On the left side, the common femoral, superficial femoral, profunda femoral, popliteal, posterior tibial, greater saphenous veins, and the peroneal trunk were identified and interrogated in the standard fashion. FINDINGS: Normal 2-D Doppler and augmentation and compressibility throughout the lower extremity venous structures. Additional imaging through the proximal calf veins also reveals no thrombus. Limited evaluation of the greater saphenous vein is patent with no thrombus. CONCLUSIONS No DVT left lower extremity. Dr. Ros Davey DO (Electronically Signed) Final Date: 16 June 2024 09:25 S
--- NOTE | 2024-06-16 08:01 | XR_ITS ---
WS: [id number] XR knee LT 3V* [id number] REASON FOR EXAM: pain FINDINGS: Long intramedullary filiberto and transverse screw fixation of previous mid femoral shaft fracture. Presume d healed fracture of the mid left fibula. No acute fracture or focal bone lesion. There is mild narrowing of the medial knee joint space with moderate subchondral sclerosis. Minimal narrowing of the lateral knee joint space. Patellofemoral joint space is intact with mild subchondral sclerosis and osteophytosis. Possible loose bodies in the central and posterior joint space. XR/XR knee LT 3V* [id number] IMPRESSION: No acute bone or joint abnormality. Previous right femoral fracture with internal fixation stable compared to 09/09. Healed fracture of the mid left fibula. Mild osteoarthritis of the left knee as above.
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
[2024-06-16 08:07] VITALS: BP 125/77; PULSE 91; RESP 16; O2SAT 94
[2024-06-16 08:14] LABS: Alanine Aminotransferase 17 U/L (0-41); Albumin Level 4.1 g/dL (3.5-5.2); Alkaline Phosphatase 55 U/L (40-130); Anion Gap 16.7 (5-19); Aspartate Amino Transferase 26 U/L (0-40); Blood Urea Nitrogen 10 mg/dL (6-20); Calcium 8.2 mg/dL (8.5-10.5); Carbon Dioxide 23 mmol/L (22-29); Chloride 107 mmol/L (98-107); Creatinine Clr Calc Pharmacy 152.5642; Globulin 2.8 g/dL (1.3-4.6); Glucose 113 mg/dL (65-115); Osmolality Calculated 296 mOsm/kg (285-295); Potassium 3.7 mmol/L (3.5-5.1); Sodium 143 mmol/L (136-145); Total Bilirubin 0.3 mg/dL (0.15-1.2); Total Protein 6.9 g/dL (6.6-8.7)
[2024-06-16 08:29] LABS: INR 0.98 (0.8-1.2)
[2024-06-16 08:30] LABS: Partial Thromboplastin Time 28.1 SECONDS (23.9-36.7)
[2024-06-16 08:31] LABS: Alcohol Level 262 mg/dL (0-10)
[2024-06-16] MEDS: iohexol 350 mg/mL 500 mL Btl (per mL) IV (09:31)
[2024-06-16 11:38] VITALS: BP 150/88; PULSE 91; O2SAT 98
== END 2024-06-16 11:39 | disposition home or self-care (01) ==
PROVIDERS: Emergency Provider Family Medicine; PCP Family Medicine
DX: M25.562 Pain in left knee (principal); F10.129 Alcohol abuse with intoxication, unspecified; Y90.8 Blood alcohol level of 240 mg/100 ml or more; F17.210 Nicotine dependence, cigarettes, uncomplicated
CPT/HCPCS: 36415; 73562; 74177; 76882; 80053; 80307; 85025; 85610; 85730; 93971; 99285; Q9967

== ENCOUNTER 2024-07-28 00:22 | Emergency (ER) | payer OTHER, BC, MEDICAID, SELFPAY ==
[2024-07-28 00:24] VITALS: BP 120/89; PULSE 78; RESP 18; TEMP 36.6; O2SAT 94; BMI 28.3
[2024-07-28 00:32] VITALS: BP 165/51; PULSE 78; RESP 17; O2SAT 97
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
[2024-07-28] MEDS: ketorolac 30 mg/mL INJ IVP (00:57)
[2024-07-28 00:58] VITALS: BP 120/88; PULSE 74; O2SAT 97
[2024-07-28] MEDS: metoclopramide 5 mg/mL SDV 2 mL 10 MG IVP (00:59)
[2024-07-28] MEDS: sodium chloride 0.9% 1,000 ML 999 ML IV (01:02)
[2024-07-28 01:31] VITALS: BP 103/61
== END 2024-07-28 01:53 | disposition home or self-care (01) ==
PROVIDERS: Emergency Provider Emergency Medicine; PCP Family Medicine
DX: G43.909 Migraine, unspecified, not intractable, without status migrainosus (principal); F17.210 Nicotine dependence, cigarettes, uncomplicated
CPT/HCPCS: 96374; 96375; 99284; J1885; J2765; J7030

== ENCOUNTER → 2024-09-02 11:14 | Outpatient (BNVA) | payer OTHER, BC, SELFPAY | PROVIDERS: PCP Family Medicine; Visit Provider Family Medicine | DX: S62.636A Displaced fracture of distal phalanx of right little finger, initial encounter for closed fracture (principal); M79.644 Pain in right finger(s) | CPT/HCPCS: 73130 ==

== ENCOUNTER → 2025-05-25 14:39 | Outpatient (BNVA) | payer OTHER, BC, MEDICAID, SELFPAY | PROVIDERS: PCP Family Medicine; Visit Provider Orthopaedic Surgery | DX: M54.2 Cervicalgia (principal); M48.02 Spinal stenosis, cervical region; G99.2 Myelopathy in diseases classified elsewhere | CPT/HCPCS: 36415; 72050; 80053; 81001; 85025 ==

== ENCOUNTER 2025-06-14 14:16 | Observation (INO) | payer OTHER, BC, MEDICAID, SELFPAY ==
[2025-06-14] VITALS (19 sets, daily range): BP systolic 138–157; BP diastolic 87–112; PULSE 66–98; RESP 16–18; TEMP 36.1–36.9; O2SAT 92–100; BMI 31.8
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
[2025-06-14] MEDS: ceFAZolin 2,000 mg SDV 2000 MG IVP ×3 (07:03→23:15)
[2025-06-14] MEDS: lidocaine-epi 1% 20 mL INJ INJECTION (07:48)
--- NOTE | 2025-06-14 09:19 | W.PM.OPSUD ---
Surgery/Procedure H&P Update DATE OF PROCEDURE: June 14, 2025 DATE H&P PERFORMED: 05/25/25 H&P UPDATE INFORMATION: I have reviewed H&P completed within last 30 days, I have examined patient prior to procedure and No changes to prior documentation PREOP DIAGNOSIS: Cervical stenosis with myelopathy PLANNED PROCEDURE: Operation Date: 06/14/25 07:00 Proposed Procedures p Anterior Cervical Discectomy & Fusion ACDF(Not Applicable) - Edilson Alvarez DO
--- NOTE | 2025-06-14 09:28 | PM.OP ---
Operative Report Date of procedure: June 14, 2025 Pre-op diagnosis: Cervical stenosis with myelopathy Post-op diagnosis: same Procedure done: 1. Anterior diskectomy C5/6 2. Anterior discectomy C4/5 3. Insertion of cage C5/6 4. Insertion of Cage C4/5 5. Instrumentation with anterior plate from C4-C6 6. Use of allograft Surgeon: Edilson Alvarez DO Estimated blood loss (mL): 25
--- NOTE | 2025-06-14 09:30 | PM.OP ---
Operative Report Date of procedure: June 14, 2025 Pre-op diagnosis: Cervical stenosis with myelopathy Procedure done: 1. Anterior diskectomy C5/6 2. Anterior discectomy C4/5 3. Insertion of cage C5/6 4. Insertion of Cage C4/5 5. Instrumentation with anterior plate from C4-C6 6. Use of allograft Surgeon: Edilson Alvarez DO Estimated blood loss (mL): 25 Procedure: 1. Anterior diskectomy C5/6 2. Anterior discectomy C4/5 3. Insertion of cage C5/6 4. Insertion of Cage C4/5 5. Instrumentation with anterior plate from C4-C6 6. Use of allograft The patient was taken to the operating room, where he underwent general endotracheal anesthesia without complications. He was then positioned supine on the operating table, and all areas of impingement were well padded. The arms were carefully padded and tucked at his sides. A roll was placed between the shoulder blades.. An x-ray was done to determine the appropriate level for the skin incision. The entire neck was then sterilely prepped and draped in the usual fashion. Neuromonitoring was attached prior to prepping. A transverse skin incision was made and carried down to the platysma muscle. This was then split in line with its fibers. Blunt dissection was carried down medial to the carotid sheath and lateral to the trachea and esophagus until the anterior cervical spine was visualized. A needle was placed into a disc and an x-ray was done to determine its location. The longus colli muscles were then elevated bilaterally with the electrocautery unit. Self-retaining retractors were placed deep to the longus colli muscle. Attention was brought to the C4/5 level that was confirmed on x-ray. A caspar pin was placed into the C4 vertebrae and the C5 vertebrae. The disk space was then distracted. The microscope was then brought in. A radical anterior discectomies were performed at C4/5. This included complete removal of the anterior annulus, nucleus, and posterior annulus. The posterior longitudinal ligament was removed as were the posterior osteophytes. Foraminotomies were then accomplished bilaterally. This was done using a high speed dipti, kerrison rongeurs and curretes Once all of this was accomplished, the curved currette was used to check for any residual compression. The central canal was wide open as were the foramen. A high-speed bur was used to remove the cartilaginous endplates above and below the interspace. Bleeding cancellous bone was exposed. The disc space were measured and appropriate size cage were placed sterilely onto the field. Allograft graft was packed into the cages. The cage was then placed and there was good juxtaposition against the bleeding decorticated surfaces and good distraction of each interspace. Attention was brought to the next interspace. The Eddington pins were removed. Bone wax was used to prevent any bleeding from occurring at the pin sites. Attention was brought to the C5/6 level that was confirmed on x-ray. A caspar pin was placed into the C5 vertebrae and the C6 vertebrae. The disk space was then distracted. The microscope was then brought in. A radical anterior discectomies were performed at C5/6. This included complete removal of the anterior annulus, nucleus, and posterior annulus. The posterior longitudinal ligament was removed as were the posterior osteophytes. Foraminotomies were then accomplished bilaterally. This was done using a high speed dipti, kerrison rongeurs and curretes Once all of this was accomplished, the curved currette was used to check for any residual compression. The central canal was wide open as were the foramen. A high-speed bur was used to remove the cartilaginous endplates above and below the interspace. Bleeding cancellous bone was exposed. The disc space were measured and appropriate size cage were placed sterilely onto the field. Allograft graft was packed into the cages. The cage was then placed and there was good juxtaposition against the bleeding decorticated surfaces and good distraction of each interspace. The Eddington pins were removed. Bone wax was used to prevent any bleeding from occurring at the pin sites. The appropriate size anterior cervical locking plate was chosen and bent into gentle lordosis. Two screws were then placed into each of the vertebral bodies at C4, C5, and C6. There was excellent purchase. A final x-ray was done confirming good position of the hardware and Cages. The locking screws were then applied, also with excellent purchase. Following a final copious irrigation, there was good hemostasis and no dural leaks. The carotid pulse was strong. The wounds were then closed in layers using 2-0 Vicryl suture for the platysma muscle, 2-0 Vicryl suture for the subcutaneous tissue, and 4-0 monocryl suture in a subcuticular skin closure. Glue was placed followed by application of a sterile dressing. The drain was hooked to bulb suction. A soft collar was applied. The patient was then carefully returned to the supine position on his hospital bed where he was reversed and extubated and taken to the recovery room having tolerated the procedure well.
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
[2025-06-14] MEDS: HYDROcodone-acetaminophen 5-325 mg Tablet PO ×3 (10:08→23:35)
--- NOTE | 2025-06-14 13:36 | XR_ITS ---
WS: [id number] XR cervical spine 3V* [id number] REASON FOR EXAM: ISAÍAS PICS FINDINGS: Anterior plate and screw fixation with interbody fusion devices C4-C6. Surgical appliances are intact and in proper position and alignment. XR/XR cervical spine 3V* [id number] IMPRESSION: Anterior cervical fusion as above.
[2025-06-14] MEDS: morphine 4 mg/mL SDV 1 mL 2 MG IVP (20:08)
[2025-06-15] VITALS: BP 140/97; PULSE 78; RESP 17; TEMP 36.9; O2SAT 95
[2025-06-15 05:04] LABS: Hematocrit 40.1 % (37-53); Hemoglobin 13.80 g/dL (11.27-16.99); Mean Corpuscular HGB Conc 34.4 g/dL (30-55); Mean Corpuscular Hemoglobin 30.5 pg (27-33); Mean Corpuscular Volume 88.7 fl (82-101); Nucleated Red Blood Cells % 0 %; Platelet Count 183 10^3/cmm (157-399); Red Blood Count 4.52 10^6/uL (3.85-5.65); White Blood Count 11.60 10^3/uL (3.29-11.43)
[2025-06-15 05:22] LABS: Magnesium 1.7 mg/dL (1.7-2.3)
[2025-06-15 05:39] VITALS: BP 145/94; PULSE 66; RESP 17; TEMP 36.7; O2SAT 96
[2025-06-15] MEDS: ceFAZolin 2,000 mg SDV 2000 MG IVP (06:33)
--- NOTE | 2025-06-15 08:48 | P.DS_ITS ---
Discharge Providers Date of Admission: 06/14/25 14:16 Date of Discharge: June 15, 2025 Attending Provider at Admission: Edilson Alvarez DO Attending Provider at Discharge: Edilson Alvarez DO Primary Care Provider: Christophe Parker MD Diagnoses at Discharge Discharge Diagnosis 1. S/P cervical spinal fusion: 2. Severe alcohol use disorder: Reason for Visit Reason for Visit: M48.02 Physical Exam Narrative: Drain minimal output. Patient feels like he has less tingling in his hands otherwise doing well. Swallowing okay. Discharge Data Studies Completed and Pending Completed Studies During Hospitalization Category Date Time Status XR cervical spine 3V* [id number] Routine Exams 06/14/25 13:36 Completed Radiology Impressions Cervical Spine X-Ray 06/14/25 13:36 IMPRESSION: Anterior cervical fusion as above. Laboratory Results WBC 11.60 10^3/uL (3.29-11.43) H 06/15/25 04:53 RBC 4.52 10^6/uL (3.85-5.65) 06/15/25 04:53 Hgb 13.80 g/dL (11.27-16.99) 06/15/25 04:53 Hct 40.1 % (37-53) 06/15/25 04:53 MCV 88.7 fl (82-101) 06/15/25 04:53 MCH 30.5 pg (27-33) 06/15/25 04:53 MCHC 34.4 g/dL (30-55) 06/15/25 04:53 RDW 13.9 % (12.1-15.1) 06/15/25 04:53 Plt Count 183 10^3/cmm (157-399) 06/15/25 04:53 MPV 10.4 fL (7.4-10.4) 06/15/25 04:53 Neut % (Auto) 79.0 % 06/15/25 04:53 Lymph % (Auto) 12.1 % 06/15/25 04:53 [place] % (Auto) 8.0 % 06/15/25 04:53 Eos % (Auto) 0.1 % 06/15/25 04:53 Baso % (Auto) 0.3 % 06/15/25 04:53 Neut # (Auto) 9.17 10^3/uL (1.8-7.7) H 06/15/25 04:53 Lymph # (Auto) 1.4 10^3/uL (0.8-4.8) 06/15/25 04:53 [place] # (Auto) 0.9 10^3/uL (0.2-0.9) 06/15/25 04:53 Eos # (Auto) 0.0 10^3/uL (0.0-0.8) 06/15/25 04:53 Baso # (Auto) 0.0 10^3/uL (0.0-0.1) 06/15/25 04:53 Nucleated RBC % (auto) 0 % 06/15/25 04:53 Nucleated RBCs # 0.0 /100WBC 06/15/25 04:53 Magnesium 1.7 mg/dL (1.7-2.3) 06/15/25 04:53 Vitals Last Vital Signs Temp 98.0 F 06/15/25 05:39 Pulse 66 06/15/25 05:39 Resp 17 06/15/25 05:39 BP 145/94 06/15/25 05:39 Pulse Ox 96 06/15/25 05:39 O2 Del Method Room Air 06/15/25 05:39 Discharge Plan Discharge Patient Disposition: Home Condition: Stable Prescriptions: New hydrocodone-acetaminophen 5-325 mg tablet 1 - 2 tab PO .Q4-6H Qty: 40 0RF Continued pantoprazole [Protonix] 40 mg tablet,delayed release (DR/EC) 40 mg PO DAILY Qty: 60 1RF nystatin 100,000 unit/gram cream 1 applic topical BID Qty: 30 0RF Xyzal 5 mg tablet 5 mg PO DAILY PRN (Reason: ALLERGIES) Qty: 90 0RF (DME) Bone Growth Stimulator See Rx Instructions .Route .MEDSUPPLY Qty: 1 0RF Rx Instructions: As directed fluticasone propionate [Flonase Allergy Relief] 50 mcg/actuation sp ray,suspension 2 spray intranasal DAILY PRN (Reason: ALLERGIES) Rx Instructions: administer into each nostril multivitamin Tablet 1 tab PO DAILY Held naproxen 500 mg tablet 500 mg PO BID PRN (Reason: pain) Qty: 60 3RF Hold Instructions: Resume on 06/16/25. Discharge Diet: Advance as tolerated Discharge Activity: Limit activity as instructed Patient Instructions: Acute Wound Care (DC), Opioid Safety, Post Anesthesia Care, Patient Portal & Robi Instructions Activity Restrictions/Additional Instructions: Thank you for choosing [facility] for your care! The following is a list of instructions, from your provider, to follow upon your discharge to ensure you have the optimal recovery from your recent injury or surgery. Anterior Cervical Discectomy and Fusion: What to Expect at Home Your Recovery Follow-up care is a jain part of your treatment and safety. Be sure to make and go to all appointments, and call your doctor if you are having problems. If you do not already have a follow-up appointment made, call office in the next 1-3 days to make follow up appointment for 2 weeks at [phone]. It is also a good idea to know your test results and keep a list of the medicines you take. You can expect your neck to feel stiff or sore after surgery. This should improve in the weeks after surgery. But it may take 4 to 6 months for you to get better completely. You may have trouble sitting or standing in one position for very long and may need pain medicine in the weeks after your surgery. It may take 4 to 6 weeks to get back to your usual activities, but it may depend on what kind of surgery you had. Your throat will feel sore and it may be difficult to swallow for the first 3 days after your surgery. As long as you can get liquids down without difficulty, this should slowly improve, otherwise call our office or seek medical attention if it becomes increasingly difficult to get anything down including liquids. Avoid hot liquids for first 3-5 days. Soothing foods/liquids such as jello, pudding, and luke warm soups are recommended until swallowing improves. Staying elevated will also help, it's advised you keep propped up at while sleeping to help reduce the swelling. You may use an ice pack directly on your incision or around it on the front of your neck, using a cloth to protect your skin; and a heating pad to the back of your neck as needed. Do not use over the counter anti-inflammatory medications (Ibuprofen, Motrin, Aleve, Advil, etc) Taking these meds after having a fusion can delay fusion rates, we recommend you avoid them for the first 3 months after your surgery[address] Dr. Alvarez may advise you to work with a physical therapist to strengthen the muscles around your neck and back - this will be discussed at your follow - up appointments. The pain or numbness you were having in your arms before surgery should get better or go away completely. This care sheet gives you a general idea about how long it will take for you to recover. But each person recovers at a different pace. Follow the steps below to get better as quickly as possible. How can you care for yourself at home? Activity ? Rest when you feel tired. Getting enough sleep will help you recover. ? Try to walk each day. Start by walking a little more than you did the day before. Bit by bit, increase the amount you walk. Walking boosts blood flow and helps prevent pneumonia and constipation. Walking may also decrease your muscle soreness after surgery. ? No lifting anything that is more that 5 pounds. This may include heavy grocery bags and milk containers, a heavy briefcase or backpack, cat litter or dog food bags, a child, or a vacuum industrial sweeper cleaner. ? Avoid strenuous activities, such as bicycle riding, jogging, weightlifting, or aerobic exercise, until your doctor says it is okay. ? Do not drive until your follow-up visit after your surgery, or until your doctor says it isokay. ? Avoid taking long car trips for 2 to 4 weeks after surgery. Your neck may become tired and painful from sitting too long in one position. ? You will probably need to take 4 to 6 weeks off from work. It depends on the type of work you do and how you feel. ? You may have sex as soon as you feel able, but avoid positions that put stress on your neck or cause pain. Diet ? You can eat your normal diet. If your stomach is upset, try bland, low-fat foods like plain rice, broiled chicken, toast, and yogurt ? Drink plenty of fluids. If you have kidney, heart, or liver disease and have to limit fluids, talk with your doctor before you increase the amount of fluids you drink. ? You may notice that your bowel movements are not regular right after your surgery. This is common. Try to avoid constipation and straining with bowel movements. You may want to take a fiber supplement every day. If you have not had a bowel movement after a couple of days, ask your doctor about taking a mild laxative. Medicines ? Take pain medicines exactly as directed. 1. If Dr. Alvarez gave you a prescription medicine for pain, take lt as prescribed. 2. Do not take two or more pain medicines at the same time unless the doctor told you to. Many pain medicines have acetaminophen, which is Tylenol. Too much acetaminophen {Tylenol) can be harmful. 3. If you think your pain pill is making you sick to your stomach: 4. Take your pills after meals (unless your doctor has told you not to). 5. Ask your Dr. for a different pain pill. Incisioncare ? Remove your dressing 48hours after your surgery. Ok to shower and get the incision wet. Do not overtly wash your incision. When done, pad dry, leave open to air thereafter. Avoid creams and ointments directly on your incision. ? Your sutures in the incision will dissolve and fall out on their own. ? Keep the area clean and dry. You may cover it with a gauze bandage if it weeps or rubs against clothing; if you choose to do this, change the dressing everyday. Other instructions ? Use a heating pad, hot water bottle, or gentle massage on your back to reduce stiffness. Avoid putting heat on your incision When should you call for help? ? Call 911 anytime you think you may need emergency care. For example, call if: ? You pass out (lose consciousness). ? You have sudden chest pain and shortness of breath, or you cough upblood. ? You cannot swallow. ? You have severe pain in your neck or back. ? Call your Dr. or seek immediate medical care if: ? You have pain that does not get better after you take pain pills. ? You have loose stitches, or your incision comes open. ? You have blood or fluid draining from the incision. ? You have signs of infection, such as: 1. Increased pain, swelling, warmth, or redness. 2. Red streaks leading from the site. 3. Pus draining from the site. 4. Swollen lymph nodes in your neck or armpits. 5. A fever. ? You have severe pain in your arms. ? You have new or increased weakness or numbness in your arms. ? Watch closely for any changes in your health, and be sure to contact your doctor if: ? You do not have a bowel movement after taking a laxative. Discharge Attestations Time Spent in Discharge Care*: less than 30 min Status at Discharge: Cognitive status at discharge: cognitively intact , Behavioral status at discharge: cooperative , Quality Metrics Clinical Quality Measures [ No reported AMI, CVA or VTE this stay] Coding Level of Care Code Acute Code for Chg Fwd Diagnoses S/P cervical spinal fusion Z98.1 Severe alcohol use disorder F10.20
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
[2025-06-15] MEDS: multivitamin therapeutic Tablet 1 TAB PO (09:14)
--- NOTE | 2025-06-15 09:15 | PC.NURSE ---
Dressing removed from neck, PERRY drain removed without difficulty pt tolerated well dressing was replaced over incision/steri strips
[2025-06-15 10:42] VITALS: BP 140/91; PULSE 72; RESP 17; TEMP 36.6; O2SAT 96
[2025-06-15] MEDS: HYDROcodone-acetaminophen 5-325 mg Tablet PO (10:48)
[2025-06-15 11:24] VITALS: BP 140/91; PULSE 72; RESP 16; TEMP 36.6; O2SAT 96
--- NOTE | 2025-06-15 11:25 | PC.NURSE ---
Hemovac drain removed per order at 0900.
== END 2025-06-15 11:25 | disposition home or self-care (01) ==
LOC: MEDSURG 14:17
PROVIDERS: Internal Medicine; Admitting Provider Orthopaedic Surgery; PCP Family Medicine; Visit Provider Orthopaedic Surgery
PROC: 0RB30ZZ Excision of Cervical Vertebral Disc, Open Approach (ICD-10-PCS; CPT 22551; principal; 2025-06-14 07:00)
DX: M48.02 Spinal stenosis, cervical region (principal); G95.9 Disease of spinal cord, unspecified; F10.20 Alcohol dependence, uncomplicated; K21.9 Gastro-esophageal reflux disease without esophagitis; F32.9 Major depressive disorder, single episode, unspecified; K20.90 Esophagitis, unspecified without bleeding; F17.210 Nicotine dependence, cigarettes, uncomplicated
CPT/HCPCS: 22551; 22552; 22853 ×2; 20930; 22845; 36415; 72040; 76000; 83735; 85025; 97110; 97161; C1713; C1763; C9359; G0378; J0330; J0690; J1100; J1885; J2250; J2270; J2405; J2704; J3010; J3490; J7030; J7120; J9999

== ENCOUNTER 2025-06-15 14:52 | Emergency (ER) | payer OTHER, BC, MEDICAID, SELFPAY ==
[2025-06-15 14:54] VITALS: BP 160/108; PULSE 75; RESP 16; TEMP 36.3; O2SAT 96
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
--- OUTSIDE RECORDS SUMMARY | 2025-06-15 15:00 | XMS_ITS | Encounter Summary ---
Author Organization [facility] Address [address] [place] [address] Care Team Providers Care Telemetry Monitor Name Role Phone (Excluded Provider) Luiz Rhoades MD 

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
--- OUTSIDE RECORDS SUMMARY | 2025-06-15 15:00 | XMS_ITS | Patient Health Record ---
Author Organization [facility] Address [address] [place] [address] Care Team Providers Care Lead Generation Specialist Name Role Phone Christophe Parker MD Primary Care Provider Unavailab Christophe Salter Unavailable [phone] Migration, Provider Unavailable Unavailable Allergies Allergen (clinical drug ingredient) Drug/Non Drug Allergy documented on EMR Reaction Allergy Type Onset Date Status tramadol Tramadol Unknown Drug Allergy Active Results Component Value Reference Range Flag Notes Schedule Confirmation (Not y et reviewed by provider) Interpretation: Performing Lab: Notes/Report: MRI Cervical Spine w/o Cont Tox Results Reviewed date:03/09/2025 02:32:14 PM Interpretation: Performing Lab: Notes/Report: MRI Cervical Spine w/o Cont- [id number] Reviewed date:05/12/2025 10:56:33 AM Interpretation: Performing Lab: Notes/Report: [id number]=[email or web address] Urine Confirmation Panel (in strument) - [id number] Reviewed date:03/09/2025 11:02:52 AM Interpretation: Performing Lab: Notes/Report: 6-Acetylmorphine 0 <6 ng/mL N This genesis t was developed and its performance characteristics determined by [facility]. It has not been cleared or approved by the U.S. Food and Drug Administration. 7-Aminoclonazepam 14 <60 ng/mL N This te st was developed and its performance characteristics determined by [facility]. It has not been cleared or approved by the U.S. Food and Drug Administration. Alprazolam 0 <60 ng/mL N This test was developed and its performance characteristics determined by [facility]. It has not been cleared or approved by the U.S. Food and Drug Administration. Amphetamine 0 <75 ng/mL N This test was developed and its performance characteristics determined by [facility]. It has not been cleared or approved by the U.S. Food and Drug Administration. aOH-Alprazolam 0 <60 ng/mL N This test was developed and its performance characteristics determined by [facility]. It has not been cleared or approved by the U.S. Food and Drug Administration. Buprenorphine 0.0 <7.5 ng/mL N This test w as developed and its performance characteristics determined by [facility]. It has not been cleared or approved by the U.S. Food and Drug Administration. Norbuprenorphine 0.0 <37.5 ng/mL N This te st was developed and its performance characteristics determined by [facility]. It has not been cleared or approved by the U.S. Food and Drug Administration. Carisoprodol 0 <75 ng/mL N This test wa s developed and its performance characteristics determined by [facility]. It has not been cleared or approved by the U.S. Food and Drug Administration. Codeine 0 <75 ng/mL N This test was developed and its performance characteristics determined by [facility]. It has not been cleared or approved by the U.S. Food and Drug Administration. EDDP 0 <75 ng/mL N This test was developed and its performance characteristics determined by [facility]. It has not been cleared or approved by the U.S. Food and Drug Administration. Fentanyl 0 <6 ng/mL N This test was developed and its performance characteristics determined by [facility]. It has not been cleared or approved by the U.S. Food and Drug Administration. Hydrocodone 0 <75 ng/mL N This test was developed and its performance characteristics determined by [facility]. It has not been cleared or approved by the U.S. Food and Drug Administration. Hydromorphone 0 <75 ng/mL N This test w as developed and its performance characteristics determined by [facility]. It has not been cleared or approved by the U.S. Food and Drug Administration. Lorazepam 0 <60 ng/mL N This test was developed and its performance characteristics determined by [facility]. It has not been cleared or approved by the U.S. Food and Drug Administration. MDMA 0 <75 ng/mL N This test was developed and its performance characteristics determined by [facility]. It has not been cleared or approved by the U.S. Food and Drug Administration. Meperidine 0.0 <37.5 ng/mL N This test was developed and its performance characteristics determined by [facility]. It has not been cleared or approved by the U.S. Food and Drug Administration. Meprobamate 0 <75 ng/mL N This test was developed and its performance characteristics determined by [facility]. It has not been cleared or approved by the U.S. Food and Drug Administration. Methamphetamine 1 <75 ng/mL N This test was developed and its performance characteristics determined by [facility]. It has not been cleared or approved by the U.S. Food and Drug Administration. Methadone 0 <75 ng/mL N This test was developed and its performance characteristics determined by [facility]. It has not been cleared or approved by the U.S. Food and Drug Administration. Morphine 0 <75 ng/mL N This test was developed and its performance characteristics determined by [facility]. It has not been cleared or approved by the U.S. Food and Drug Administration. Nordiazepam 0 <60 ng/mL N This test was developed and its performance characteristics determined by [facility]. It has not been cleared or approved by the U.S. Food and Drug Administration. Norfentanyl 0 <6 ng/mL N This test was developed and its performance characteristics determined by [facility]. It has not been cleared or approved by the U.S. Food and Drug Administration. Normeperidine 0.0 <37.5 ng/mL N This test was developed and its performance characteristics determined by [facility]. It has not been cleared or approved by the U.S. Food and Drug Administration. O-desmethyltramadol 0 <75 ng/mL N This test was developed and its performance characteristics determined by [facility]. It has not been cleared or approved by the U.S. Food and Drug Administration. Oxazepam 0 <60 ng/mL N This test was developed and its performance characteristics determined by [facility]. It has not been cleared or approved by the U.S. Food and Drug Administration. Oxycodone 0.0 <37.5 ng/mL N This test was developed and its performance characteristics determined by [facility]. It has not been cleared or approved by the U.S. Food and Drug Administration. Oxymorphone 0 <75 ng/mL N This test was developed and its performance characteristics determined by [facility]. It has not been cleared or approved by the U.S. Food and Drug Administration. Phencyclidine 0.0 <7.5 ng/mL N This test w as developed and its performance characteristics determined by [facility]. It has not been cleared or approved by the U.S. Food and Drug Administration. Tapentadol 14.3 <37.5 ng/mL N This test was developed and its performance characteristics determined by [facility]. It has not been cleared or approved by the U.S. Food and Drug Administration. Temazepam 0 <60 ng/mL N This test was developed and its performance characteristics determined by [facility]. It has not been cleared or approved by the U.S. Food and Drug Administration. Tramadol 0 <75 ng/mL N This test was developed and its performance characteristics determined by [facility]. It has not been cleared or approved by the U.S. Food and Drug Administration. Norhydrocodone 0 <75 ng/mL N This test was developed and its performance characteristics determined by [facility]. It has not been cleared or approved by the U.S. Food and Drug Administration. Noroxycodone 0 <38 ng/mL N This test wa s developed and its performance characteristics determined by [facility]. It has not been cleared or approved by the U.S. Food and Drug Administration. Pregabalin 0 <225 ng/mL N This test was developed and its performance characteristics determined by [facility]. It has not been cleared or approved by the U.S. Food and Drug Administration. Gabapentin >31225 <225 ng/mL > This test was developed and its performance characteristics determined by [facility]. It has not been cleared or approved by the U.S. Food and Drug Administration. Benzoylecgonine 0.0 <37.5 ng/mL N This genesis t was developed and its performance characteristics determined by [facility]. It has not been cleared or approved by the U.S. Food and Drug Administration. 4-Hydroxy Xylazine 0 <25 ng/mL N This t est was developed and its performance characteristics determined by [facility]. It has not been cleared or approved by the U.S. Food and Drug Administration. Urine Drug Screen (cup read) - [id number] Reviewed date:03/03/2025 03:47:39 PM Interpretation:Negative all Performing Lab: Notes/Report: Negative all Schedule Confirmation (Not y et reviewed by provider) Interpretation: Performing Lab: Notes/Report: MRI Cervical Spine w/o Cont [facility] MRI Cervical Spine w/o C [id number] Reviewed date:05/12/2025 10:56:27 AM Interpretation: Performing Lab: Notes/Report: See Below For Report MRI Cervical Spine w/o Cont Jurgen Gamez 04/14/2025 03:22:46 PM CDT > Cervical Stenosis on lumbar apprentice painter neckties Martha Willis 04/15/2025 09:28:36 AM CDT > Approved: [id number] Dates: 04/15/2025 - 06/13/2025 Read See Below For Report Reason For Referral Reason C5-6 Stenosis Diagnosis 1 Cervical spondylosis with radiculopathy (M47.22) Referral Organization [facility] Referring Provider First Name Christophe Referring Provider Last Name Verna Referring Provider Speciality [facility] Referred Provider Edilson Alvarez Referred Provider Specialty Orthopedic S urgery Referral Priority Routine Medications Medication SIG (Take, Route, Frequency, Duration) Notes Start Date End Date Status Butrans 7.5 MCG/HR Patch Weekly 1 patch to skin Transdermal once a week; Duration: 28 days 05/12/2025 05/12/2025 07/07/2025 Active Social History Tobacco Use: Social History Observation Description Date Details (start date - stop date) Current Smoker NA - NA Social History Tobacco Use: Social Info Question Answer Notes Tobacco Control (Standard) Tobacco use: Current smoker How often do you smoke cigarettes? Every day How many cigarettes a day do you smoke? 11-20 Additional Details Category Social Info Options Details Miscellaneous: Marital status: Single Current Employment Status On Dis ability Drugs/Alcohol: Do you drink alcohol? Yes Problems Problem Type SNOMED Code ICD Code Onset Dates Problem Status W/U Status Risk Notes Problem Chronic pain syndrome (894712728) Chronic pain syndrome (G89.4) Active confirmed Problem Radiculopathy due to lumbar intervertebral disc disorder (334272784316546) Intervertebral disc disorders with radiculopathy, lumbar region (M51.16) Active confirmed Problem Lumbosacral spondylosis with radiculopathy (316483214) Lumbosacral spondylosis with radiculopathy (M47.27) Active confirmed Problem Alcoholism (4115573) Alcoholism (F10.20) Active confirmed Problem Cervical disc disorder (663412575) DDD (degenerative disc disease), cervical (M50.30) Active confirmed Problem Cervical spondylosis without myelopathy (967075558) Cervical spondylosis with radiculopathy (M47.22) Active confirmed Problem Abnormal gait (14455361) Abnormality of gait and mobility (R26.9) Active confirmed Vital Signs Height-cm 185.42 cm 05/12/2025 Weight-kg 105.23 kg 05/12/2025 Height 73.00 in 05/12/2025 Weight 232 lbs 05/12/2025 BMI 30.61 kg/m2 05/12/2025 Procedures Procedure Date Ordered Date Performed Result Body Sit e Epidural, Lumbar/Sacral (Cau alec), w/ imaging guidance - [id number] 03/23/2025 03/23/2025 N/A Encounters Encounter Location Date Provider Diagnosis [facility] [address] [address] 03/23/2025 Christophe Gillespie Intervertebral disc disorders with radiculopathy, lumbar region M51.16 [facility] [place] [address] [place] [address] 05/12/2025 Christophe Gillespie Chronic pain syndrom e G89.4 ; DDD (degenerative disc disease), cervical M50.30 ; Cervical spondylosis with radiculopathy M47.22 ; Intervertebral disc disorders with radiculopathy, lumbar region M51.16 ; Lumbosacral spondylosis with radiculopathy M47.27 ; Abnormality of gait and mobility R26.9 and Admission for long-term opiate analgesic use Z79.891 [facility] [place] [address] [place] [address] 04/14/2025 Christophe Gillespie Chronic pain syndrom e G89.4 ; DDD (degenerative disc disease), cervical M50.30 ; Cervical spondylosis with radiculopathy M47.22 ; Intervertebral disc disorders with radiculopathy, lumbar region M51.16 ; Lumbosacral spondylosis with radiculopathy M47.27 ; Abnormality of gait and mobility R26.9 and Admission for long-term opiate analgesic use Z79.891 [facility] [place] [address] [place] [address] 03/03/2025 Christophe Gillespie Chronic pain syndrom e G89.4 ; DDD (degenerative disc disease), cervical M50.30 ; Cervical spondylosis with radiculopathy M47.22 ; Intervertebral disc disorders with radiculopathy, lumbar region M51.16 ; Lumbosacral spondylosis with radiculopathy M47.27 ; Abnormality of gait and mobility R26.9 and Admission for long-term opiate analgesic use Z79.891 [facility] [place] [address] [place] [address] 12/02/2024 Christophe Gillespie Chronic pain syndrom e G89.4 ; DDD (degenerative disc disease), cervical M50.30 ; Cervical spondylosis with radiculopathy M47.22 ; Intervertebral disc disorders with radiculopathy, lumbar region M51.16 ; Lumbosacral spondylosis with radiculopathy M47.27 and Abnormality of gait and mobility R26.9 [facility] [place] [address] [place] [phone] 09/30/2024 hCristophe Gillespie Chronic pain syndrom e G89.4 ; DDD (degenerative disc disease), cervical M50.30 ; Cervical spondylosis with radiculopathy M47.22 ; Intervertebral disc disorders with radiculopathy, lumbar region M51.16 ; Lumbosacral spondylosis with radiculopathy M47.27 and Abnormality of gait and mobility R26.9 [facility] [address] [facility] [place] [address] 08/11/2024 Christophe Gillespie [facility] [address] [address] 09/02/2024 Christophe Gillespie [facility] [address] [address] 07/29/2024 Christophe Gillespie Migrated[facility]Facility 0 0 09/06/2024 Provider Migration [facility]rated[facility]Facility 0 0 09/05/2024 Provider Migration [facility] [place] [address] [facility] [place] [address] 02/18/2025 Christophe Gillespie [facility] [place] [address] [facility] [place] [address] 02/18/2025 Christophe Gillespie Lumbosacral spondylosis with radiculopathy M47.27 [facility] [place] [address] [place] [facility] [address] 01/04/2025 Christophe Gillespie [facility] [place] [address] [place] [facility] [place] [address] 09/29/2024 Christophe Grimesolivia Assessments Encounter Date Diagnosis (ICD Code) Assessment Notes Treatment Notes Treatment Clinical Notes Section Notes 09/30/2024 Chronic pain syndrome (ICD-10 - G89.4) I had a nice visit with the patient today regarding his chronic pain issues. He is apparently still awaiting the prescription to go through the pharmacy. It does appear it has been approved so we will try to follow up on that. He also says he never heard anything concerning the physical therapy so we will check in on that as well. Hopefully all of this will fall into place and we will get him on the road to some improvement. We will see him back in about a month and proceed accordingly. 09/30/2024 DDD (degenerative disc disease), cervical (ICD-10 - M50.30) 12/02/2024 Chronic pain syndrome (ICD-10 - G89.4) I had a nice visit with the patient today regarding his chronic pain issues. It seems like his insurance continues to give us problems with getting certain things approved as far as his physical therapy and imaging. He does have some recurrent symptoms going down his right lower extremity and he is interested in a repeat lumbar epidural steroid injection. He is tolerating the butrans well and it does provide some relief so we will continue that unchanged. We will see him back after the injection and proceed accordingly. Schedule repeat LESI 12/02/2024 DDD (degenerative disc disease), cervical (ICD-10 - M50.30) 03/23/2025 Intervertebral disc disorders with radiculopathy, lumbar region (ICD-10 - M51.16) 04/14/2025 Chronic pain syndrome (ICD-10 - G89.4) I had a nice visit with the patient today regarding his chronic pain issues. He got a couple of weeks of fairly good relief from the lumbar epidural steroid injection, but the pain has returned. We again reviewed his lumbar MRI from the fall, and I noted that he has some moderate stenosis on the apprentice painter neckties films, and they did recommend he follow up with a cervical MRI which he says he never did. We will get that ordered, continue his Butrans for now, and see him back in about a month to reevaluate. 03/03/2025 Chronic pain syndrome (ICD-10 - G89.4) I had a nice visit with the patient today regarding his chronic pain issues. Overall, he seems to be doing about the same. He says the patches don't seem to be working as well as they used to and we discussed increasing the dose and he is interested so we will get this changed. We will also see how his disability hearing goes tomorrow. We will try and get him scheduled for the epidural as he thinks he will be able to do it at this point and we will follow up with him thereafter. Schedule LESI 03/03/2025 DDD (degenerative disc disease), cervical (ICD-10 - M50.30) 05/12/2025 Chronic pain syndrome (ICD-10 - G89.4) I had a nice visit with the patient today regarding his chronic pain issues. We got his cervical MRI back, and it does show severe central canal stenosis with some edema of the cord at the C5-6 level. We will refer him to a surgeon; he requested someone local, so we will send him to Dr. Alvarez. We will see what comes with this. He did have a couple of small areas of scabs at the site of his patches. It is nothing too severe, so we will continue his medications unchanged and see how this progresses. We will see him back in about 2 months and proceed accordingly. 02/18/2025 Lumbosacral spondylosis with radiculopathy (ICD-10 - M47.27) 05/12/2025 DDD (degenerative disc disease), cervical (ICD-10 - M50.30) 03/03/2025 Cervical spondylosis with radiculopathy (ICD-10 - M47.22) 04/14/2025 DDD (degenerative disc disease), cervical (ICD-10 - M50.30) 12/02/2024 Cervical spondylosis with radiculopathy (ICD-10 - M47.22) 09/30/2024 Cervical spondylosis with radiculopathy (ICD-10 - M47.22) 09/30/2024 Intervertebral disc disorders with radiculopathy, lumbar region (ICD-10 - M51.16) 12/02/2024 Intervertebral disc disorders with radiculopathy, lumbar region (ICD-10 - M51.16) 04/14/2025 Cervical spondylosis with radiculopathy (ICD-10 - M47.22) 03/03/2025 Intervertebral disc disorders with radiculopathy, lumbar region (ICD-10 - M51.16) 05/12/2025 Cervical spondylosis with radiculopathy (ICD-10 - M47.22) 05/12/2025 Intervertebral disc disorders with radiculopathy, lumbar region (ICD-10 - M51.16) 03/03/2025 Lumbosacral spondylosis with radiculopathy (ICD-10 - M47.27) RECOMMEND THERAPEUTIC LUMBAR EPIDURAL STEROID INJECTION, levels 4-5 The patient reports overall 50% improvement in function and decrease in pain for greater than one month from previous diagnostic RAMIN. The patient also reports improvement in tolerance to activities which generally cause pain. Based on the results of previous diagnostic RAMIN, a therapeutic RAMIN is recommended. Expectation from a successful therapeutic epidural steroid injection is at least 50-70% relief of pain from baseline and evidence of improved function for at least six to eight weeks after delivery. The goal of epidural steroid injections is to reduce pain and inflammation, restoring range of motion and, thereby, facilitating progress in more active treatment programs, and avoiding surgery. The procedure and risks were discussed with the patient including but not limited to infection, bleeding, neurological complications, side effects from medications, no change in pain, worsening of pain, or even . We also discussed conservative options, surgical options, and medical management with patient as well. The patient indicates understanding and wishes to proceed with the recommended treatment approach. The patient was given written information about the procedure and all questions were answered. 04/14/2025 Intervertebral disc disorders with radiculopathy, lumbar region (ICD-10 - M51.16) 12/02/2024 Lumbosacral spondylosis with radiculopathy (ICD-10 - M47.27) 09/30/2024 Lumbosacral spondylosis with radiculopathy (ICD-10 - M47.27) 09/30/2024 Abnormality of gait and mobility (ICD-10 - R26.9) 12/02/2024 Abnormality of gait and mobility (ICD-10 - R26.9) 04/14/2025 Lumbosacral spondylosis with radiculopathy (ICD-10 - M47.27) 03/03/2025 Abnormality of gait and mobility (ICD-10 - R26.9) 05/12/2025 Lumbosacral spondylosis with radiculopathy (ICD-10 - M47.27) 05/12/2025 Abnormality of gait and mobility (ICD-10 - R26.9) 03/03/2025 Admission for long-term opiate analgesic use (ICD-10 - Z79.891) 04/14/2025 Abnormality of gait and mobility (ICD-10 - R26.9) 04/14/2025 Admission for long-term opiate analgesic use (ICD-10 - Z79.891) 05/12/2025 Admission for long-term opiate analgesic use (ICD-10 - Z79.891) 09/30/2024 Other Duy Jaquez am scribing for Christophe Gillespie. IChristophe, personally performed the services described in this documentation , as scribed by Duy Schaffer, and it is both accurate and complete. 12/02/2024 Other Duy Jaquez am scribing for Dr. Christophe Gillespie. I, Dr. Christophe Gillespie, personally performed the services described in this documentation , as scribed by Duy Schaffer, and it is both accurate and complete. 03/03/2025 Duy Acosta am scribing for Dr. Christophe Gillespie. I, Dr. Christophe Gillespie, personally performed the services described in this documentation, as scribed by Duy Schaffer, and it is both accurate and complete. 04/14/2025 Other I, Radha Stoll, am scribing for Dr. Gillespie. I, Dr. Gillespie, personally performed the services described in this documentation, as scribed by Radha Stoll, and it is both accurate and complete. 05/12/2025 Other Gisele, TAQUERIA Porter, am scribing for Dr. Christophe Gillespie. I, Dr. Chritsophe Gillespie, personally performed the services described in this documentation, as scribed by TAQUERIA Porter, and it is both accurate and complete. Plan Of Treatment Pending Test Test Name Order Date Schedule Confirmation 05/04/2025 Schedule Confirmation 05/04/2025 Future Test Test Name Order Date Fluoro Needle For Placement - Spine 7700 3 12/22/2024 Next Appt Details Provider Name:Padminichina headley, 07/15/2025 02:00:00 PM, [address] [place], [address], Insurance Providers Payer Name Payer Address Payer Phone Subscriber Number Group Number Insured Name Patient Relationship to Insured Coverage Start Date Coverage End Date [employer] [address] [place] [address] [id number] Lucio James Self - patient is the insured [facility] Medicaid Replacement [address] [address] [place] [address] [id number] Lucio James Self - patient is the insured 3 Medical (General) History Medical History History ICD Code Arthritis Surgical History Surgery Date(Month/Year) neck surgery pelvis surgery femur surgery collar bone surgery
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
[2025-06-15] MEDS: morphine 4 mg/mL SDV 1 mL IVP (16:43)
[2025-06-15] MEDS: ondansetron 2 mg/ML SDV 2 mL 4 MG IVP (16:43)
[2025-06-15] MEDS: iohexol 350 mg/mL 500 mL Btl (per mL) IV (16:48)
--- NOTE | 2025-06-17 07:30 | DCPLANNER ---
messaged ortho for er f/u
== END 2025-06-15 17:51 | disposition home or self-care (01) ==
PROVIDERS: Emergency Provider Physician Assistant; PCP Family Medicine
DX: R13.10 Dysphagia, unspecified (principal); F17.210 Nicotine dependence, cigarettes, uncomplicated
CPT/HCPCS: 70491; 96374; 96375; 99285; J1100; J2270; J2405

== ENCOUNTER → 2025-07-20 08:16 | Outpatient (BNVA) | payer OTHER, BC, MEDICAID, SELFPAY | PROVIDERS: PCP Family Medicine; Visit Provider Orthopaedic Surgery | DX: Z98.890 Other specified postprocedural states (principal); Z98.1 Arthrodesis status | CPT/HCPCS: 72040 ==

== ENCOUNTER → 2025-08-17 08:25 | Outpatient (BNVA) | payer OTHER, BC, MEDICAID, SELFPAY | PROVIDERS: PCP Family Medicine; Visit Provider Orthopaedic Surgery | DX: Z98.890 Other specified postprocedural states (principal) | CPT/HCPCS: 72040 ==

== ENCOUNTER → 2025-08-25 14:51 | Outpatient (BNVA) | payer OTHER, BC, MEDICAID, SELFPAY | PROVIDERS: PCP Family Medicine; Visit Provider Family Medicine | DX: R39.9 Unspecified symptoms and signs involving the genitourinary system (principal); A64 Unspecified sexually transmitted disease; Z72.51 High risk heterosexual behavior | CPT/HCPCS: 80053; 81000; 83036; 87806 ==

== ENCOUNTER → 2025-09-08 08:26 | Outpatient (BNVA) | payer OTHER, BC, MEDICAID, SELFPAY | PROVIDERS: PCP Family Medicine; Visit Provider Family Medicine | DX: Z01.89 Encounter for other specified special examinations (principal) | CPT/HCPCS: 87491; 87591 ==

== ENCOUNTER → 2025-10-12 07:49 | Outpatient (BNVA) | payer OTHER, MEDICAID, SELFPAY | PROVIDERS: PCP Family Medicine; Visit Provider Orthopaedic Surgery | DX: M48.02 Spinal stenosis, cervical region (principal); G99.2 Myelopathy in diseases classified elsewhere | CPT/HCPCS: 72040 ==

== ENCOUNTER 2025-10-18 14:58 | Outpatient (CLI) | payer BC, MEDICAID, OTHER, SELFPAY ==
--- NOTE | 2025-10-18 15:15 | MR_ITS ---
WS: [id number] MRI LUMBAR SPINE NONCONTRAST TECHNIQUE: Sagittal T1, T2 and STIR imaging. Axial T1 and T2 imaging. CLINICAL INFORMATION: lumbar pain COMPARISON: MRI 04/2024 FINDINGS: Mild lumbar curve. No acute compression. Mild annular bulging L3-L4 and L4-L5. Previously described RIGHT L4-5 protrusion impinging the subarticular recess has involuted or been resected. L1-L2: Moderate facet arthropathy. Spinal canal and foramen are patent. L2-L3: Moderate facet arthropathy. Mild RIGHT foraminal narrowing with a small RIGHT foraminal protrusion. Spinal canal is patent. L3-L4: Mild disc bulging with impingement of the LEFT subarticular recess and traversing LEFT L4 nerve root. LEFT foraminal protrusion with moderate LEFT foraminal narrowing impinges the exiting LEFT L3 nerve root. Mild RIGHT foraminal narrowing. Moderate facet arthropathy. L4-L5: Improved impingement of the RIGHT subarticular recess. Moderate facet arthropathy. Small bilateral foraminal protrusions with mild bilateral foraminal narrowing. L5-S1: Mild disc osteophyte ridging. Spinal canal and foramen are patent. Moderate facet arthropathy. Visualized pelvic bony structures: Normal. Paravertebral soft tissues: Normal. 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 Mild lumbar curve. No acute compression. Postoperative changes LEFT sacroil iac fusion. 2. RIGHT paracentral protrusion at L4-5 has involuted or been resected. Mild b ilateral foraminal narrowing at this level with small foraminal protrusions. 3. LEFT foraminal protrusion L3-4 impinges the exiting LEFT L3 nerve root with moderate LEFT foraminal narrowing. This appears slightly progressed. Narrowing of the LEFT L3-4 subarticular recess. Recommend correlation for LEFT L4 nerve root symptoms. 4. Small RIGHT foraminal protrusion L2-3 with mild RIGHT foraminal narrowing. 5. Moderate facet arthropathy L3-L4 and L4-L5.
== END 2025-10-18 14:59 | disposition home or self-care (01) ==
LOC: RAD 15:00
PROVIDERS: PCP Family Medicine; Visit Provider Orthopaedic Surgery
DX: M51.26 Other intervertebral disc displacement, lumbar region (principal); M47.816 Spondylosis without myelopathy or radiculopathy, lumbar region; M51.369 Other intervertebral disc degeneration, lumbar region without mention of lumbar back pain or lower extremity pain; M48.061 Spinal stenosis, lumbar region without neurogenic claudication; M25.78 Osteophyte, vertebrae; M47.897 Other spondylosis, lumbosacral region; M48.07 Spinal stenosis, lumbosacral region
CPT/HCPCS: 72148

== ENCOUNTER → 2025-10-21 13:36 | Outpatient (BNVA) | payer BC, MEDICAID, SELFPAY | PROVIDERS: PCP Family Medicine; Visit Provider Orthopaedic Surgery | DX: M48.061 Spinal stenosis, lumbar region without neurogenic claudication (principal); G89.29 Other chronic pain | CPT/HCPCS: 72110 ==

== ENCOUNTER 2025-10-22 12:37 | Outpatient (CLI) | payer BC, MEDICAID, SELFPAY ==
[2025-10-22 13:38] LABS: Glucose Urine UA Negative (Normal); Nitrate Urine Negative (Negative); Specific Gravity, Urine 1.021 (1.005-1.030)
[2025-10-22 13:40] LABS: Hematocrit 47.3 % (37-53); Hemoglobin 16.30 g/dL (11.27-16.99); Mean Corpuscular HGB Conc 34.5 g/dL (30-55); Mean Corpuscular Hemoglobin 30.9 pg (27-33); Mean Corpuscular Volume 89.8 fl (82-101); Nucleated Red Blood Cells % 0 %; Platelet Count 222 10^3/cmm (157-399); Red Blood Count 5.27 10^6/uL (3.85-5.65); White Blood Count 5.51 10^3/uL (3.29-11.43)
[2025-10-22 13:43] LABS: Add Urine Microscopic? YES
[2025-10-22 14:08] LABS: Alanine Aminotransferase 33 U/L (0-41); Albumin Level 4.5 g/dL (3.5-5.2); Alkaline Phosphatase 65 U/L (40-130); Anion Gap 15.9 (5-19); Aspartate Amino Transferase 64 U/L (0-40); Blood Urea Nitrogen 8 mg/dL (6-20); Calcium 9.3 mg/dL (8.5-10.5); Carbon Dioxide 24 mmol/L (22-29); Chloride 104 mmol/L (98-107); Globulin 3.1 g/dL (1.3-4.6); Glucose 103 mg/dL (65-115); Osmolality Calculated 289 mOsm/kg (285-295); Potassium 3.9 mmol/L (3.5-5.1); Sodium 140 mmol/L (136-145); Total Protein 7.6 g/dL (6.6-8.7)
== END 2025-10-22 12:38 | disposition home or self-care (01) ==
LOC: LAB 12:38
PROVIDERS: PCP Family Medicine; Visit Provider Orthopaedic Surgery
DX: M54.9 Dorsalgia, unspecified (principal)
CPT/HCPCS: 36415; 80053; 81001; 85025